=== PATIENT | male | born 1965 | race Caucasian/White ===

== ENCOUNTER 2016-09-12 06:26 | Day surgery (SDC) | payer OTHER ==
[2016-09-11 10:33] VITALS: BMI 26.2
[~2016-09-12 06:26] MED LIST: DEXAMETHASONE SOD PHOSPHATE 10 MG/ML 1 ML VIAL IV ONE; HEPARIN SODIUM,PORCINE 5,000 UNIT/ML 1 ML VIAL SQ ONE; LACTATED RINGERS 1,000 ML IV ONE; LIDOCAINE 1% 20 ML VIAL (10MG/ML) FOR IV START INTRADERMA PRN; MIDAZOLAM 2 MG/2 ML VIAL IV PRN; SCOPOLAMINE 1.5MG/72HR PATCH TRANSDERM ONE; ceFAZolin 2 GM in SODIUM CHLORIDE 0.9% 100 ML IVPB ONE
[2016-09-12] MEDS ORDERED: LIDOCAINE 1% 20 ML VIAL (10MG/ML) FOR IV START INTRADERMA ONE (07:10)
[2016-09-12 07:11] LABS: Glucose,Whole Blood 106 mg/dL (75-99)
[2016-09-12] MEDS ORDERED: LACTATED RINGERS 1,000 ML IV ONE (07:12)
[2016-09-12 07:27] LABS: CH 31.1; CHCM 35.3; HCT 45.7 % (39.0-53.0); HDW 2.43; HGB 15.7 gm/dL (13.0-17.5); MCH 30.5 pg (25.0-35.0); MCHC 34.4 g/dL (31.0-37.0); MCV 88.7 fL (80.0-100.0); RBC 5.15 m/uL (4.30-5.90); RDW 12.7 % (11.5-15.5); WBC 5.7 k/uL (3.8-10.6)
[2016-09-12 07:36] LABS: Anion Gap 10 mmol/L; Blood Urea Nitrogen 17 mg/dL (9-20); Calcium 9.7 mg/dL (8.4-10.2); Carbon Dioxide 24 mmol/L (22-30); Chloride 106 mmol/L (98-107); Glucose 111 mg/dL (74-99); Non-African American GFR(MDRD) >60 (>60 ml/min/1.73 sqM); Potassium 4.8 mmol/L (3.5-5.1); Sodium 140 mmol/L (137-145)
--- NOTE | 2016-09-12 07:39 | P.GSHP ---
History of Present Illness H&P Date: 09/12/16 Chief Complaint: Incisional hernia This is a 50-year-old male who has developed an incisional hernia above his umbilicus. Patient presents today for laparoscopic robotic-assisted repair. Past Medical History Past Medical History: Coronary Artery Disease (CAD), Chest Pain / Angina, Eye Disorder, GERD/Reflux, GI Bleed, Hypertension, Sleep Apnea/CPAP/BIPAP Additional Past Medical History / Comment(s): L eye glaucoma. no recent problems w/chest pain, supposed to take BP med, "pre-diabetic", elevated liver enzymes, past hx. GI bleed, doesn't use CPAP, INCISIONAL HERNIA ABOVE UMBILICAL AREA History of Any Multi-Drug Resistant Organisms: None Reported Past Surgical History: Appendectomy, Cholecystectomy, Heart Catheterization, Hernia Repair, Orthopedic Surgery Additional Past Surgical History / Comment(s): knee surg. due to a spider bite Past Anesthesia/Blood Transfusion Reactions: No Reported Reaction Past Psychological History: No Psychological Hx Reported Additional Psychological History / Comment(s): Pt lives with S.O. for 20 yrs. Pt is normally independent. Pt works as a [employer]. Pt drives. Smoking Status: Never smoker Past Alcohol Use History: Occasional Additional Past Alcohol Use History / Comment(s): STATES ON DRINKS 3 BEERS WEEKLY AT THIS TIME Past Drug Use History: None Reported - Past Family History Father Family Medical History: Coronary Artery Disease (CAD), Myocardial Infarction (RI ) Additional Family Medical History / Comment(s): Father at age 62 or 63. He had 13 RI's before he . Mother Family Medical History: Cancer, Diabetes Mellitus Additional Family Medical History / Comment(s): Mother was 61-62 yrs when she . Medications and Allergies Home Medications Medication Instructions Recorded Confirmed Type Ibuprofen [Motrin] 800 mg PO TID PRN 09/11/16 09/11/16 History Allergies Allergy/AdvReac Type Severity Reaction Status Date / Time ondansetron HCl Allergy Itching Verified 09/11/16 10:23 [From Zofran (as hydrochloride)] Surgical - Exam Vital Signs Temp Pulse Resp BP Pulse Ox 97 F L 73 16 127/91 96 09/12/16 07:10 09/12/16 07:10 09/12/16 07:10 09/12/16 07:10 09/12/16 07:10 - General well developed, no distress - Eyes PERRL - ENT normal pinna - Neck no masses - Respiratory normal expansion - Cardiovascular Rhythm: regular - Abdomen Abdomen: soft, non tender Hernia: incisional (3 cm incisional hernia located above the umbilicus.) Results - Labs 09/12/16 07:09 Abnormal Lab Results - Last 24 Hours (Table) 09/12/16 Range/Units 06:55 POC Glucose (mg/dL) 106 H (75-99) mg/dL Assessment and Plan Plan: Incisional hernia. We'll perform laparoscopic robotic-assisted repair.
[2016-09-12] MEDS ORDERED: PROPOFOL 10 MG/ML 20 ML VIAL IV ONE (07:44)
[2016-09-12] MEDS ORDERED: fentaNYL (PF) 50 MCG/ML 2 ML AMP ONE (07:44)
[2016-09-12] MEDS ORDERED: NEOSTIGMINE 1 MG/ML 10 ML VIAL ONE (07:44)
[2016-09-12] MEDS ORDERED: ROCURONIUM BROMIDE 10 MG/ML 10 ML VIAL IV ONE (07:44)
[2016-09-12] MEDS ORDERED: LIDOCAINE 1% INJ 10MG/ML (20 ML MDV) ONE (07:44)
[2016-09-12] MEDS ORDERED: MIDAZOLAM 2 MG/2 ML VIAL ONE (07:44)
[2016-09-12] MEDS ORDERED: HYDROmorphone (PF) 1 MG/ML ONE (07:44)
[2016-09-12] MEDS ORDERED: SUCCINYLCHOLINE CHLORIDE 100 MG/5 ML SYR IV ONE (07:44)
[2016-09-12] MEDS ORDERED: GLYCOPYRROLATE 0.2 MG/ML 2 ML VIAL ONE (07:44)
[2016-09-12] MEDS ORDERED: BUPIVACAIN-EPI 0.25%-1:200,000 30 ML VIAL SQ ONE ×3 (08:07→08:10)
[2016-09-12 09:07] VITALS: TEMP 98.4
--- NOTE | 2016-09-12 09:08 | P.OP ---
Date of Procedure: 09/12/16 Preoperative Diagnosis: Incisional hernia Postoperative Diagnosis: Incisional hernia Procedure(s) Performed: Laparoscopic Robotic-assisted repair of incisional hernia Partial omentectomy Anesthesia: MAC Surgeon: Yuval Wilson Estimated Blood Loss (ml): 5 Pathology: other (Incarcerated omentum) Condition: stable Disposition: PACU Description of Procedure: The patient's placed on the operative table in the supine position. He received general anesthesia. His abdomen was prepped and draped usual sterile fashion. The patient had an incarcerated incisional hernia located above the umbilicus. A 5 mm blade less trocar was placed in the peritoneal cavity in the left upper quadrant under direct visitation. The abdomen was insufflated and then a 8 mm trocar was placed in the left lower quadrant a 12 mm trocar was placed in the left lateral position and then the initial 5 mm trocar was exchanged for an 8 mm trocar. The patient was then docked to the robot. The hernia was visualized. And then using the hook cautery the incarcerated fat was removed from the hernia. The fascial defect was visualized. The fascial defect was closed with oh the lock suture. A [address] mesh was placed in her cavity this was secured with 20 the lock suture. The patient was undocked from the robot once the mesh was placed. The needles were then withdrawn. The incarcerated omentum was then withdrawn. And then the fascia 12 mm trocar site was closed with 0 Ethibond suture. Skin was closed interrupted 3-0 Monocryl suture. Dermabond was applied. Patient was sent to recovery room stable condition.
[2016-09-12] MEDS: HYDROmorphone 1 MG/ML 1 ML SYRINGE IVP PRN ×2 (09:14→09:20)
[2016-09-12 09:17] VITALS: RESP 18
[2016-09-12 09:29] LABS: Glucose,Whole Blood 169 mg/dL (75-99)
[2016-09-12] MEDS ORDERED: HYDROcodone/APAP 7.5-325MG 1 EACH TAB PO ONE (10:05)
[2016-09-12 10:33] VITALS: BP 160/89; PULSE 67
== END 2016-09-12 10:55 | disposition home or self-care (01) ==
LOC: OR 06:26
PROVIDERS: ATTEND Surgery
DX: K43.0 Incisional hernia with obstruction, without gangrene (principal); I10 Essential (primary) hypertension; K21.9 Gastro-esophageal reflux disease without esophagitis; Z79.1 Long term (current) use of non-steroidal anti-inflammatories (NSAID); Z88.8 Allergy status to other drugs, medicaments and biological substances; Z82.49 Family history of ischemic heart disease and other diseases of the circulatory system
CPT/HCPCS: 49655; S2900; 80048; 85027; 86850; 86900; 86901; 88302

== ENCOUNTER → 2020-12-02 | Outpatient (CLI) | payer OTHER | END | disposition home or self-care (01) | LOC: LABPAT 11:32 | PROVIDERS: ATTEND Surgery | DX: Z01.812 Encounter for preprocedural laboratory examination (principal); Z20.822 Contact with and (suspected) exposure to COVID-19 | CPT/HCPCS: 93005; U0003; U0005 ==

== ENCOUNTER → 2020-12-16 | Outpatient (CLI) | payer SELFPAY | END | disposition home or self-care (01) | LOC: LABPAT 11:49 | PROVIDERS: ATTEND Surgery | DX: Z01.812 Encounter for preprocedural laboratory examination (principal); Z20.822 Contact with and (suspected) exposure to COVID-19 | CPT/HCPCS: U0003; C9803 ==

== ENCOUNTER 2021-01-11 11:49 | Day surgery (SDC) | payer MEDICAID, OTHER ==
[2021-01-07 10:03] VITALS: BMI 27.0
[~2021-01-11 11:49] MED LIST changes: +CHLOROPROCAINE 3% 30 MG/ML 20 ML VIAL ONE; -DEXAMETHASONE SOD PHOSPHATE 10 MG/ML 1 ML VIAL IV ONE; +DEXAMETHASONE SOD PHOSPHATE 4 MG/ML 1 ML VIAL IV ONE; -HEPARIN SODIUM,PORCINE 5,000 UNIT/ML 1 ML VIAL SQ ONE; +HYDROmorphone 0.5 MG/0.5 ML SYRINGE IVP PRN; -LACTATED RINGERS 1,000 ML IV ONE; +LACTATED RINGERS 1,000 ML IV SCH; -LIDOCAINE 1% 20 ML VIAL (10MG/ML) FOR IV START INTRADERMA PRN; -MIDAZOLAM 2 MG/2 ML VIAL IV PRN; +Pre Op ABX Message 1 EACH MISC MISCELLANE ONE; -SCOPOLAMINE 1.5MG/72HR PATCH TRANSDERM ONE; -ceFAZolin 2 GM in SODIUM CHLORIDE 0.9% 100 ML IVPB ONE
[2021-01-11] MEDS ORDERED: LIDOCAINE 1% (10MG/ML) FOR IV START INTRADERMA ONE (12:29)
[2021-01-11 12:37] LABS: Glucose,Whole Blood 84 mg/dL (75-99)
[2021-01-11] MEDS ORDERED: MIDAZOLAM 2 MG/2 ML VIAL IV ONE (12:37)
[2021-01-11] MEDS ORDERED: fentaNYL (PF) 50 MCG/ML 2 ML AMP ONE (13:34)
[2021-01-11] MEDS ORDERED: MIDAZOLAM 2 MG/2 ML VIAL ONE (13:34)
[2021-01-11] MEDS ORDERED: PROPOFOL 10 MG/ML 20 ML VIAL IV ONE (13:34)
--- NOTE | 2021-01-11 13:42 | P.GSHP ---
History of Present Illness H&P Date: 01/11/21 55-year-old male initially presented to the surgery clinic with complaints of internal hemorrhoids. The internal hemorrhoids were causing both pain and bleeding with bowel movements. He states this did occur with every bowel movement. He states that he had tried medical regimen including fiber phan pplementation and increased water intake. He does state that he drinks all call diverges every day and has not tried cutting back on that. He has never had a colonoscopy. He presents today for colonoscopy and hemorrhoidectomy. - Review of Systems All systems: negative Past Medical History Past Medical History: Coronary Artery Disease (CAD), Chest Pain / Angina, Eye Disorder, GERD/Reflux, Hypertension, Sleep Apnea/CPAP/BIPAP Additional Past Medical History / Comment(s): Start of left eye Glaucoma. Hx chest pain X2, no medication needed for high BP, "Pre-Diabetic", elevated liver enzymes, getting better, no CPAP use. Hx CoVid more than 30 days ago. History of Any Multi-Drug Resistant Organisms: None Reported Past Surgical History: Appendectomy, Cholecystectomy, Heart Catheterization, Hernia Repair, Orthopedic Surgery Additional Past Surgical History / Comment(s): Left knee surgery. Past Anesthesia/Blood Transfusion Reactions: No Reported Reaction Past Psychological History: No Psychological Hx Reported Smoking Status: Never smoker Past Alcohol Use History: Rare Past Drug Use History: None Reported - Past Family History Father Family Medical History: Coronary Artery Disease (CAD), Myocardial Infarction (PR) Additional Family Medical History / Comment(s): Father at age 62 or 63. He had 13 PR's before he . Mother Family Medical History: Cancer, Diabetes Mellitus Additional Family Medical History / Comment(s): Mother was 61-62 yrs when she . Medications and Allergies Home Medications Medication Instructions Recorded Confirmed Type Cetirizine HCl [Zyrtec] 10 mg PO DAILY 01/07/21 01/11/21 History Psyllium Husk [Metamucil] 0.4 gm PO DAILY PRN 01/07/21 01/11/21 History Allergies Allergy/AdvReac Type Severity Reaction Status Date / Time ondansetron HCl Allergy Itching Verified 01/11/21 12:14 [From Zofran (as hydrochloride)] Surgical - Exam Osteopathic Statement: *. No significant issues noted on an osteopathic structural exam other than those noted in the History and Physical/Consult. Vital Signs Temp Pulse Resp BP Pulse Ox 98.3 F 89 16 132/93 95 01/11/21 12:10 01/11/21 12:10 01/11/21 12:10 01/11/21 12:10 01/11/21 12:10 - General well nourished, no distress - Neck trachea midline - Abdomen Abdomen: soft, non tender - Rectum Grade 2 internal hemorrhoids Assessment and Plan Plan: 55-year-old male with grade 2 internal hemorrhoids. He has requested hem orrhoidectomy. We will perform a colonoscopy and hemorrhoidectomy. Risks, benefits and alternatives were provided to the patient. He did provide consent prior to attending the operating suite.
[2021-01-11] MEDS ORDERED: LACTATED RINGERS 1,000 ML IV ONE ×2 (14:00→15:39)
[2021-01-11] MEDS ORDERED: BUPIVACAIN-EPI 0.5%-1:200,000 30 ML VIAL SQ ONE (14:37)
[2021-01-11] MEDS ORDERED: LIDOCAINE 2% GEL 30 ML TUBE TOPICAL ONE (14:37)
[2021-01-11 15:07] VITALS: TEMP 96.9
[2021-01-11 15:18] VITALS: RESP 16
--- NOTE | 2021-01-11 15:34 | P.OP ---
Date of Procedure: 01/11/21 Preoperative Diagnosis: Screening for colon cancer Internal hemorrhoids Postoperative Diagnosis: Descending colon polyp Grade 2 internal hemorrhoids Procedure(s) Performed: Colonoscopy with polypectomy Hemorrhoidectomy Anesthesia: MAC Surgeon: Esequiel Hamilton Pathology: other (Hemorrhoids) Condition: stable Disposition: same day Indications for Procedure: 55-year-old male presented to the surgery clinic with complaints of blood per rectum and hemorrhoidal pain. On exam, he was found to have grade 2 internal hemorrhoids. He had never had a colonoscopy previously. He states that he has tried multiple medical modalities for hemorrhoidal treatment without any success. Secondary to this, plan was made for colonoscopy and hemorrhoidectomy based on patient request. Risks, benefits and alternatives of procedure were provided to the patient.. He did provide consent prior to attending the operati ng suite. Operative Findings: Descending colon polyp. Internal hemorrhoids Description of Procedure: The patient was brought into the operating suite and placed in left lateral decubitus position and adequate sedation was achieved using conscious sedation. A digital rectal exam was performed and internal hemorrhoids were palpated. An endoscope was then placed in the rectum and advanced to the cecum resident from LMX including the appendiceal orifice and ileocecal valve. The prep was good. The colonoscope was then slowly withdrawn, examining for any mucosal abnormality. The cecum, ascending, transverse, descending and sigmoid colon were visualized adequately. A descending colon polyp was noted. This was removed with forceps polypectomy but was unable to be retrieved for pathology. Hemostasis was noted to be maintained. There are no additional large neoplastic lesions. Retroflexion was performed in the rectum and internal hemorrhoids were visible. Excess air was removed, the colonoscope withdrawn and this portion of the procedure was terminated. The patient was then placed in prone position and prepped and draped in regular sterile fashion. A retractor was then placed in the anus and internal hemorrhoids were clearly visualized. These were noted at the 8 o'clock position along with the 4 o'clock position. The first hemorrhoid was grasped with a hemorrhoidal clamp. An elliptical incision was made around the hemorrhoid tissue using a scalpel. At this point LigaSure device was used to elliptically excise the hemorrhoidal tissue, staying superficial to the palpable sphincter muscle. Further bleeding was controlled with cautery. The mucosa was closed with a running 3-0 Vicryl suture leaving the end point of the dermis open. The second hemorrhoid was removed in a similar fashion. An additional smaller hemorrhoid was noted, however decision was made not to excise this hemorrhoid due to risk of stenosis. At this point Gelfoam was wrapped and placed within the anus. Sterile dressing was applied. The patient was awakened in the operative suite and taken to postanesthesia care unit in stable condition.
[2021-01-11 16:25] VITALS: BP 144/91; PULSE 75
== END 2021-01-11 16:29 | disposition home or self-care (01) ==
LOC: ORWHC2ENDO 11:49
PROVIDERS: ATTEND Surgery
DX: Z12.11 Encounter for screening for malignant neoplasm of colon (principal); K64.8 Other hemorrhoids; I25.10 Atherosclerotic heart disease of native coronary artery without angina pectoris; I10 Essential (primary) hypertension; H40.9 Unspecified glaucoma; K21.9 Gastro-esophageal reflux disease without esophagitis; G47.30 Sleep apnea, unspecified; R73.03 Prediabetes; R74.8 Abnormal levels of other serum enzymes; Z90.89 Acquired absence of other organs; Z90.49 Acquired absence of other specified parts of digestive tract; Z98.890 Other specified postprocedural states; Z82.49 Family history of ischemic heart disease and other diseases of the circulatory system; Z83.3 Family history of diabetes mellitus; Z79.899 Other long term (current) drug therapy; Z88.8 Allergy status to other drugs, medicaments and biological substances
CPT/HCPCS: 45398; 88304; 45380; J2400; J2250; J1100; J3010; J2704; 45385

== ENCOUNTER 2023-01-22 16:59 | Observation (INO) | payer MEDICAID, OTHER ==
[2023-01-22] MEDS ORDERED: MECLIZINE 12.5 MG TAB PO STA (17:36)
[2023-01-22] MEDS ORDERED: SODIUM CHLORIDE 0.9% 1,000 ML IV STA (17:38)
[2023-01-22 17:50] LABS: Basophils % (A) 0 %; Eosinophils # (A) 0.2 k/uL (0-0.7); Eosinophils % (A) 3 %; HCT 46.8 % (39.0-53.0); HGB 15.8 gm/dL (13.0-17.5); Lymphocytes # (A) 2.3 k/uL (1.0-4.8); Lymphocytes % (A) 32 %; MCH 29.1 pg (25.0-35.0); MCHC 33.8 g/dL (31.0-37.0); MCV 86.1 fL (80.0-100.0); Mean Platelet Volume 7.9; Monocytes # (A) 0.4 k/uL (0-1.0); Monocytes % (A) 6 %; Neutrophils # (A) 4.1 k/uL (1.3-7.7); Neutrophils % (A) 57 %; Platelet Count 176 k/uL (150-450); RBC 5.43 m/uL (4.30-5.90); RDW 12.8 % (11.5-15.5); WBC 7.1 k/uL (3.8-10.6)
[2023-01-22 18:00] LABS: ALT 22 U/L (4-49); AST 25 U/L (17-59); African American GFR (CKD) >90 (>60 ml/min/1.73 sqM); Albumin 4.6 g/dL (3.5-5.0); Alkaline Phosphatase 45 U/L (38-126); Anion Gap 9 mmol/L; Blood Urea Nitrogen 17 mg/dL (9-20); Calcium 9.7 mg/dL (8.4-10.2); Carbon Dioxide 23 mmol/L (22-30); Chloride 108 mmol/L (98-107); Glucose 104 mg/dL (74-99); Lipase 37 U/L (23-300); Magnesium 2.1 mg/dL (1.6-2.3); Non-African American GFR(CKD) >90 (>60 ml/min/1.73 sqM); Sodium 140 mmol/L (137-145); Total Bilirubin 0.9 mg/dL (0.2-1.3); Total Protein 7.5 g/dL (6.3-8.2)
--- NOTE | 2023-01-22 18:07 | ED ---
Chest Pain HPI - General Chief Complaint: Chest Pain Stated Complaint: dizziness,chest pain Time Seen by Provider: 01/22/23 17:05 Source: patient Mode of arrival: wheelchair Limitations: no limitations - History of Present Illness Initial Comments: 57-year-old male with past medical history of coronary artery disease, hypertension who presents emergency room reporting chest pain and sudden onset of dizziness. Patient states he was outside working on his yard when he had sudden onset of chest pressure and dizziness. Patient felt like he was going to pass out. Symptoms are worse with positional changes. He states that he stopped and got something to drink. Attempted to lay back down underneath a car however when he laid flat the symptoms of the room spinning got worse. He reports to feeling intoxicated however did not have anything to drink today. He denies a headache. Also has some radiating pain from his left chest wall to his left arm. No speech deficits or confusion. Patient did not take any medications for symptoms before coming into the emergency department. No other alleviating, precipitating factors - Related Data Home Medications Medication Instructions Recorded Confirmed Cetirizine HCl [Zyrtec] 10 mg PO DAILY 01/07/21 01/22/23 Allergies Allergy/AdvReac Type Severity Reaction Status Date / Time ondansetron HCl AdvReac UPSETS HIS Verified 01/22/23 19:07 [From Zofran (as STOMACH hydrochloride)] Review of Systems ROS Statement: Those systems with pertinent positive or pertinent negative responses have been documented in the HPI. ROS Other: All systems not noted in ROS Statement are negative. Past Medical History Past Medical History: Coronary Artery Disease (CAD), Chest Pain / Angina, Eye Disorder, GERD/Reflux, Hypertension, Sleep Apnea/CPAP/BIPAP Additional Past Medical History / Comment(s): Start of left eye Glaucoma. Hx chest pain X2, no medication needed for high BP, "Pre-Diabetic", elevated liver enzymes, getting better, no CPAP use. Hx CoVid more than 30 days ago. History of Any Multi-Drug Resistant Organisms: None Reported Past Surgical History: Appendectomy, Cholecystectomy, Heart Catheterization, Hernia Repair, Orthopedic Surgery Additional Past Surgical History / Comment(s): Left knee surgery. Past Anesthesia/Blood Transfusion Reactions: No Reported Reaction Past Psychological History: No Psychological Hx Reported Smoking Status: Never smoker Past Alcohol Use History: Rare Past Drug Use History: None Reported - Past Family History Father Family Medical History: Coronary Artery Disease (CAD), Myocardial Infarction ([place]) Additional Family Medical History / Comment(s): Father at age 62 or 63. He had 13 CO's before he . Mother Family Medical History: Cancer, Diabetes Mellitus Additional Family Medical History / Comment(s): Mother was 61-62 yrs when she . General Exam Limitations: no limitations General appearance: alert, in no apparent distress Head exam: Present: atraumatic, normocephalic, normal inspection Eye exam: Present: normal appearance, PERRL, EOMI. Absent: scleral icterus, conjunctival injection, periorbital swelling ENT exam: Present: normal exam, mucous membranes moist Neck exam: Present: normal inspection. Absent: tenderness, meningismus, lymphadenopathy Respiratory exam: Present: normal lung sounds bilaterally. Absent: respiratory distress, wheezes, rales, rhonchi, stridor Cardiovascular Exam: Present: regular rate, normal rhythm, normal heart sounds. Absent: systolic murmur, diastolic murmur, rubs, gallop, clicks GI/Abdominal exam: Present: soft, normal bowel sounds. Absent: distended, tenderness, guarding, rebound, rigid Extremities exam: Present: normal inspection, full ROM, normal capillary refill. Absent: tenderness, pedal edema, joint swelling, calf tenderness Back exam: Present: normal inspection Neurological exam: Present: alert, oriented X3, CN II-XII intact Psychiatric exam: Present: normal affect, normal mood Skin exam: Present: warm, dry, intact, normal color. Absent: rash Course Vital Signs 01/22/23 01/22/23 01/22/23 17:02 18:58 21:28 Temperature 97.6 F Pulse Rate 71 87 68 Respiratory 20 19 16 Rate Blood Pressure 137/85 128/84 122/75 O2 Sat by Pulse 98 98 99 Oximetry Chest Pain MDM - MDM Was pt. sent in by a medical professional or institution (, PA, CHEMIST INTERN, urgent care, hospital, or retirement...) When possible be specific @ -No Did you speak to anyone other than the patient for history (EMS, parent, family, police, friend...)? What history was obtained from this source @ -Spoke with the patient's Did you review nursing and triage notes (agree or disagree)? Why? @ -I reviewed and agree with nursing and triage notes Were old charts reviewed (outside hosp., previous admission, EMS record, old EKG, old radiological studies, urgent care reports/EKG's, retirement records)? Report findings @ -No old charts were reviewed Differential Diagnosis (chest pain, altered mental status, abdominal pain women, abdominal pain men, vaginal bleeding, weakness, fever, dyspnea, syncope, headache, dizziness, GI bleed, back pain, seizure, CVA, palpatations, mental health, musculoskeletal)? @ -Differential Dizziness: Benign paroxysmal positional Vertigo, Menieres disease, otitis media, acoustic neuroma, vertebrobasilar insufficiency, cerebellar stroke, encephalitis, hypovolemic, arrhythmia, coronary artery syndrome, anemia, this is not meant to be an all-inclusive list Differential Chest Pain: Stable Angina, Unstable Angina, STEMI, NSTEMI Aortic Dissection, Pneumothorax, Musculoskeletal, Esophageal Spasm GERD, Cholecystitis, Pancreatitis, Zoster, this is not meant to be an all-inclusive list. EKG interpreted by me (3pts min.). @ -Yes. EKG demonstrates sinus rhythm with rate of 68. CA interval 175. QRS 83. QTC is 387. No acute ST segment elevations or depressions X-rays interpreted by me (1pt min.). @ -Yes and no acute intrathoracic process CT interpreted by me (1pt min.). @ -Yes and demonstrates no acute intracranial process U/S interpreted by me (1pt. min.). @ -None done What testing was considered but not performed or refused? (CT, X-rays, U/S, la bs)? Why? @ -None What meds were considered but not given or refused? Why? @ -None Did you discuss the management of the patient with other professionals (professionals i.e. , PA, CHEMIST INTERN, lab, RT, psych nurse, social services assistant, virtual assistant for advertisers, teacher, banking officer, casework manager)? Give summary @ -Yes I spoke with Dr. Edwards who agreed to admit the patient Was smoking cessation discussed for >3mins.? @ -No Was critical care preformed (if so, how long)? @ -No Were there social determinants of health that impacted care today? How? (Homelessness, low income, unemployed, alcoholism, drug addiction, transportation, low edu. Level, literacy, decrease access to med. care, alf, rehab)? @ -No Was there de-escalation of care discussed even if they declined (Discuss DNR or withdrawal of care, Hospice)? DNR status @ -No What co-morbidities impacted this encounter? (DM, HTN, Smoking, COPD, CAD, Cancer, CVA, ARF, Chemo, Hep., AIDS, mental health diagnosis, sleep apnea, morbid obesity)? @ -None Was patient admitted / discharged? Hospital course, mention meds given and route, prescriptions, significant lab abnormalities, going to OR and other pertinent info. @ -Upon arrival patient was placed into a trauma 1. A thorough history and physical exam is performed. IV access is established laboratory studies were conducted. Patient was given 25 mg of meclizine and reevaluated however continues to have symptoms. He was then given [address] is performed which demonstrates no acute intracranial process. Patient does have persistent vertiginous symptoms and therefore is given [address] angiography performed which demonstrates no acute occlusion. Recommended admission for neurology and cardiac consultation. Spoke with Dr. Waite who agreed to admit the patient Undiagnosed new problem with uncertain prognosis? @ -Yes Drug Therapy requiring intensive monitoring for toxicity (Heparin, Nitro, Insulin, Cardizem)? @ -No Were any procedures done? @ -No Diagnosis/symptom? @ -Acute chest pain, acute intractable vertigo Acute, or Chronic, or Acute on Chronic? @ -Acute Uncomplicated (without systemic symptoms) or Complicated (systemic symptoms)? @ -Complicated Side effects of treatment? @ -No Exacerbation, Progression, or Severe Exacerbation? @ -No Poses a threat to life or bodily function? How? (Chest pain, [place], CO, pneumonia, PE, COPD, DKA, ARF, appy, cholecystitis, CVA, Diverticulitis, Homicidal, Suicidal, threat to staff... and all critical care pts) @ -No Disposition Clinical Impression: Chest pain, Vertigo Disposition: ADMITTED IP TO THIS [facility] Condition: Good Is patient prescribed a controlled substance at d/c from ED?: No Time of Disposition: 20:32 Decision to Admit Reason: Admit from EC Decision Date: 01/22/23 Decision Time: 20:32
[2023-01-22 18:11] LABS: Prothrombin Time 10.2 sec (9.0-12.0)
[2023-01-22 18:14] LABS: Partial Thromboplastin Time 21.4 sec (22.0-30.0)
--- NOTE | 2023-01-22 18:22 | XR ---
EXAMINATION TYPE: XR chest 2V DATE OF EXAM: 01/22/2023 5:56 PM COMPARISON: Chest radiographs from 10/02/2014 TECHNIQUE: XR chest 2V Frontal and lateral views of the chest. CLINICAL INDICATION:Male, 57 years old with history of Chest Pain; FINDINGS: Lungs/Pleura: There is no evidence of pleural effusion, focal consolidation, or pneumothorax. Pulmonary vascularity: Unremarkable. Heart/mediastinum: Cardiomediastinal silhouette is unremarkable. Musculoskeletal: No acute osseous pathology. IMPRESSION: No acute cardiopulmonary disease/process.
--- NOTE | 2023-01-22 19:47 | CT ---
EXAMINATION TYPE: CT brain wo con CT DLP: 1168.4 mGycm, Automated exposure control for dose reduction was used. DATE OF EXAM: 01/22/2023 7:29 PM COMPARISON: None. CLINICAL INDICATION:Male, 57 years old with history of headache, dizzy, Dizziness, weakness, nausea. TECHNIQUE: Brain: Axial CT images of the brain were obtained with coronal and sagittal reformats created and rev iewed. Contrast used: None. Oral contrast used: None. FINDINGS: Brain: Extra-axial spaces: No abnormal extra-axial fluid collections. Ventricular system: Within normal limits Cerebral parenchyma: No acute intraparenchymal hemorrhage or mass effect. The rossi-white junction is well differentiated. Cerebellum: Unremarkable. Mass effect: No evidence of midline shift. Intracranial vasculature: unremarkable Soft tissues: Normal. Calvarium/osseous structures: No depressed skull fracture. Paranasal sinuses and mastoid air cells: Mild scattered paranasal sinus disease. Visualized orbits: Orbital contents are intact. IMPRESSION: No acute intracranial process.
[2023-01-22] MEDS ORDERED: DEXAMETHASONE SOD PHOSPHATE 10 MG/ML 1 ML VIAL IVP STA (20:29)
[2023-01-22] MEDS ORDERED: NALOXONE 0.4 MG/ML 1 ML VIAL IV PRN (20:33)
--- NOTE | 2023-01-22 21:16 | CT ---
EXAMINATION TYPE: CT angio head neck CT DLP: 648.80 mGycm, Automated exposure control for dose reduction was used. DATE OF EXAM: 01/22/2023 8:58 PM COMPARISON: None. CLINICAL INDICATION:Male, 57 years old with history of persistent vertigo;, vertigo TECHNIQUE: Axially acquired helical CT angiogram of the head and neck was obtained with contrast. Axi al images are supplemented with 3D reconstructions which [facility] NASCET criteria used. Contrast used:65 mL of Isovue 370 with IV Contrast, Oral contrast used: None. FINDINGS: CTA HEAD: No evidence of acute intracranial hemorrhage, mass effect, or midline shift. The ventricles, sulci, a nd cisterns are unremarkable. The visualized portions of the internal carotid arteries, middle cerebral arteries, anterior cerebral arteries, and posterior cerebral arteries are patent. Intracranial atherosclerosis of the internal carotid arteries. The basilar and vertebral arteries are patent. Is right dominant vertebral artery system CTA NECK: Poor bolus timing limits evaluation of the vascular structures of the neck. Right Carotid System: The common carotid artery and external carotid artery are patent. The carotid bifurcation demonstrate s no evidence of hemodynamically significant stenosis. The remaining portions of the internal carotid artery demonstrate normal size without significant narrowing. Left Carotid System: The common carotid artery and external carotid artery are patent. The carotid bifurcation demonstrate s no evidence of hemodynamically significant stenosis. The remaining portions of the internal carotid artery demonstrate normal size without significant narrowing. Vertebral arteries are patent without evidence hemodynamically significant stenosis. There is a three-vessel aortic arch. The origins of the great vessels are patent. No evidence of hemo dynamically significant stenosis. IMPRESSION: 1. Limited evaluation of the neck vascular structures secondary to limited amount of contrast within the vascular structures. What is visualized of the carotid bifurcations are patent. The vertebral ar teries are patent. There is right dominant vertebral artery. 2. No evidence of intracranial high-grade stenosis or intracranial aneurysm.
[2023-01-22] MEDS: SODIUM CHLORIDE 0.9% 1,000 ML IV SCH (21:24)
[2023-01-22 22:46] LABS: African American GFR (CKD) >90 (>60 ml/min/1.73 sqM); Anion Gap 5 mmol/L; Blood Urea Nitrogen 15 mg/dL (9-20); Calcium 8.7 mg/dL (8.4-10.2); Carbon Dioxide 25 mmol/L (22-30); Chloride 106 mmol/L (98-107); Glucose 159 mg/dL (74-99); Non-African American GFR(CKD) >90 (>60 ml/min/1.73 sqM); Potassium 4.1 mmol/L (3.5-5.1); Sodium 136 mmol/L (137-145)
[2023-01-23] MEDS ORDERED: BUTALB/APAP/CAFF 50-325-40MG TAB PO PRN (09:19)
[2023-01-23] MEDS ORDERED: KETOROLAC 15 MG/ML 1 ML VIAL IVP STA (09:19)
[2023-01-23] MEDS ORDERED: IBUPROFEN 600 MG TAB PO PRN (09:20)
[2023-01-23] MEDS ORDERED: ACETAMINOPHEN TAB 325 MG TAB PO PRN (09:20)
[2023-01-23] MEDS: SODIUM CHLORIDE 0.9% 1,000 ML IV SCH ×2 (09:55→21:26)
--- NOTE | 2023-01-23 10:20 | CONS ---
CONSULTATION HISTORY OF PRESENT ILLNESS: A 57-year-old gentleman with family history of premature coronary artery disease, who is admitted to hospital with severe vertigo. He was working underneath his truck, suddenly moved his head one way, and developed vertigo and has had recurrent bouts of the same, and along with this, he has had some nausea, started having chest discomfort, and came to the ER and got admitted. At the time of my evaluation, he still has vertigo. Cardiac enzymes have been negative, and EKG does not reveal any ischemic changes. His CT scan of the brain was negative. PAST MEDICAL HISTORY: Negative for hypertension, diabetes, or dyslipidemia. MEDICATIONS: Include Zyrtec. FAMILY HISTORY: Significant for premature coronary artery disease. SOCIAL HISTORY: Negative for smoking, EtOH abuse, or drug abuse. REVIEW OF SYSTEMS: 14 out of 14 review of systems has been performed. Pertinents are as documented. PHYSICAL EXAMINATION: GENERAL: He is comfortable at rest. VITAL SIGNS: Stable. There are no orthostatic changes. NECK: There is no jugular venous distention. Carotid upstroke is normal. There is no bruit. CHEST: Reveals good air entry bilaterally. HEART: Reveals first and second heart sounds. No gallop. No murmur. No rub. ABDOMEN: Soft and nontender. EXTREMITIES: Did not reveal any edema. Peripheral pulses are felt. LABORATORY DATA: EKG is normal. Cardiac enzymes are normal. Hemoglobin is normal. Electrolytes are normal. ASSESSMENT: 1. Vertigo. 2. Atypical chest pain. PLAN: I will obtain a 2D echo. Vertigo management is as per primary and Neurology. The patient will need a stress test when his vertiginous symptoms improve, and this will be done in the outpatient setup. MMODL / IJN: [id number] /
[2023-01-23 10:50] LABS: Basophils # (A) 0 X 10*3/uL (0.00-0.10); Basophils % (A) 0 %; Eosinophils # (A) 0 X 10*3/uL (0.04-0.35); Eosinophils % (A) 0 %; HCT 43.6 % (39.6-50.0); HGB 14.4 g/dL (13.0-17.0); Immature Grans, Automated 0.4 %; Lymphocytes # (A) 0.95 X 10*3/uL (0.90-5.00); Lymphocytes % (A) 17.2 %; MCH 29.2 pg (27.0-32.0); MCV 88.4 fL (80.0-97.0); Mean Platelet Volume 10.7 fL (9.5-12.2); Monocytes # (A) 0.09 X 10*3/uL (0.20-1.00); Monocytes % (A) 1.6 %; NRBC Per 100 WBC 0 /100 WBCS (0.0-0.0); Neutrophils # (A) 4.47 X 10*3/uL (1.80-7.70); Neutrophils % (A) 80.8 %; Platelet Count 175 X 10*3/uL (140-440); RBC 4.93 X 10*6/uL (4.40-5.60); WBC 5.53 X 10*3/uL (4.50-10.00)
[2023-01-23 11:06] LABS: African American GFR (CKD) 110.9 (60.0-200.0); Anion Gap 9.7 mmol/L (10.00-18.00); BUN/Creat Ratio 16.1 Ratio (12.00-20.00); Blood Urea Nitrogen 13.8 mg/dL (9.0-27.0); Calcium 9.1 mg/dL (8.7-10.3); Carbon Dioxide 22.4 mmol/L (20.0-27.5); Non-African American GFR(CKD) 95.7 (60.0-200.0); Potassium 4.3 mmol/L (3.5-5.5)
[2023-01-23] MEDS ORDERED: ASPIRIN 81 MG PO STA (11:22)
--- NOTE | 2023-01-23 11:39 | P.CNNES ---
History of Present Illness Consult date: 01/23/23 Requesting physician: Kristina Ramos Reason for Consult: Intractable vertigo History of Present Illness: Patient is a 57-year-old right-handed male, with previous history of intermittent dizziness/lightheadedness came to the hospital yesterday at 4:59 PM for acute onset of vertigo. Patient states that yesterday at 4 PM he was working on the yard, and crawled under the tractor to fix something. After he was done, when he got out underneath, he felt dizzy, with spinning sensation. He sat down. His gave him some water, juice and some sandwiches with yogurt. He believes that as he was laying underneath the truck, his head was slightly below his body because of the incline in the driveway. He believe it was because of that position. About 30 minutes after, he felt better, and wanted to go under the truck again. He got under the truck and as soon as he got in there, he started spinning. He felt nauseous, like will vomit. He sat up, leaned against the truck he appeared pale, complaining of chest pain or shortness of breath. His was concerned about possible cardiac reasons, called their children, who helped him get up and get into the car and she brought him to the hospital. Patient says that he felt like drunk, although he is not drinking anymore. His noticed that he has some slurred speech although patient believes that it was possibly from dry mouth and nausea. He denied any focal numbness, tingling, focal weakness, or any double vision or loss of vision although he had to concentrate to focus. He could not stand. He did have some headache and was acting slow in general. Vital signs on arrival blood pressure 137/85, pulse rate 71 temperature 97.6. Blood test shows normal CBC, PT/PTT, normal CMP, troponin's, lipase. EKG, chest x-ray and CT head are normal. I personally reviewed CT head, and appears normal. No acute process. The visualized paranasal sinuses and external auditory canals are clear. CTA of head and neck was limited study because of limited amount of contrast within the vascular structures, but otherwise appears patent. The vertebral arteries are patent. There is right dominant vertebral artery. No evidence of intracranial high-grade stenosis or intracranial aneurysm. While in the ER, when computed tomography scan of the head was attempted, and as soon as he laid flat in the scanner, he started having significant vertigo nausea and wanted to vomit. He was given Valium to sleep. Once he slept, he was put back on the scanner, and within less than 5 seconds, he started spinning again. With great difficulty the test was completed. Last night when he was sitting up, he was okay but when he would lay flat, he would start spinning. This morning when he woke up, and he rolled over to the left, immediately felt vertigo. Patient states that at present, he cannot sit up, cannot lay flat, cannot roll over to the left side. He cannot roll over all the way to the right, although he is slightly comfortable when he is about 30 turned to the right. Patient takes Zyrtec 10 mg daily. He does not take any antiplatelet medication. He states that he does have hypertension, prediabetes, denies any current alcohol use, as he completely quit drinking on 12/02/2021, as he used to drink quite heavily before that. He has never smoked, used to smoke we did, quit age 25.He denies any recent head or neck injury. Patient states that for few years he has been feeling dizzy lightheaded off and on, which he attributed to not eating or drinking well. He bought motorcycle, but notices that when he was trying to come to stop sign and takes off, he felt wobbly before he can continue to ride the motorcycle. He feels loss of balance at that time. Patient does have some tinnitus mainly in the right ear which she describes as "pinging". Patient states that about 2 weeks ago he was under the truck at the same spot and had no-shows at that time. He denies any recent ear infection, any pain in the ears or feeling pops. Last summer he was noticing difficulty with swimming because of dizziness. Patient states that this is the first time that he suffered from vertigo, otherwise he is to get only dizziness. Orthostatics checked, supine blood pressure 131/77, pulse rate 87, sitting blood pressure 127/78, pulse rate 96, standing blood pressure 113/73 with pulse of 97. Orthostatics are essentially borderline negative. Review of Systems Constitutional: Denies chills, Denies fever Eyes: denies blurred vision (Difficult to focus), denies diplopia, denies pain Ears: bilateral: tinnitus (Left worse), deny: decreased hearing, ear discharge, earache Ears, nose, mouth and throat: Denies headache, Denies sore throat Cardiovascular: Reports chest pain, Denies shortness of breath Respiratory: Denies cough, Denies excessive sputum Gastrointestinal: Reports nausea, Reports vomiting, Denies abdominal pain, Denies diarrhea Genitourinary: Denies discharge, Denies dysuria, Denies flank pain, Denies urinary frequency Musculoskeletal: Denies myalgias, Denies neck pain Integumentary: Denies pruritus, Denies rash Neurological: Reports as per HPI Psychiatric: Denies anxiety, Denies depression Endocrine: Denies fatigue, Denies weight change Hematologic/Lymphatic: Denies easy bleeding, Denies easy bruising Past Medical History Past Medical History: Coronary Artery Disease (CAD), Chest Pain / Angina, Eye Disorder, GERD/Reflux, Hypertension, Sleep Apnea/CPAP/BIPAP Additional Past Medical History / Comment(s): Start of left eye Glaucoma. Hx chest pain X2, no medication needed for high BP, "Pre-Diabetic", elevated liver enzymes, getting better, no CPAP use. Hx CoVid more than 30 days ago. History of Any Multi-Drug Resistant Organisms: None Reported Past Surgical History: Appendectomy, Cholecystectomy, Heart Catheterization, Hernia Repair, Orthopedic Surgery Additional Past Surgical History / Comment(s): Left knee surgery. Past Anesthesia/Blood Transfusion Reactions: No Reported Reaction Past Psychological History: No Psychological Hx Reported Smoking Status: Never smoker Past Alcohol Use History: Rare Past Drug Use History: None Reported - Past Family History Father Family Medical History: Coronary Artery Disease (CAD), Myocardial Infarction ([place]) Additional Family Medical History / Comment(s): Father at age 62 or 63. He had 13 [place]'s before he . Mother Family Medical History: Cancer, Diabetes Mellitus Additional Family Medical History / Comment(s): Mother was 61-62 yrs when she . Medications and Allergies Home Medications Medication Instructions Recorded Confirmed Type Cetirizine HCl [Zyrtec] 10 mg PO DAILY 01/07/21 01/22/23 History Allergies Allergy/AdvReac Type Severity Reaction Status Date / Time ondansetron HCl AdvReac UPSETS HIS Verified 05/29/23 19:07 [From Zofran (as STOMACH hydrochloride)] Physical Examination - Vital Signs Vital Signs: Vital Signs Temp Pulse Pulse Pulse Pulse Pulse Resp 01/23/23 07:15 98 F 74 15 01/23/23 01:33 97.7 F 96 97 87 18 01/23/23 00:51 18 01/22/23 22:53 97.8 F 65 18 01/22/23 21:28 68 16 01/22/23 18:58 87 19 01/22/23 17:02 97.6 F 71 20 BP BP BP BP BP Pulse Ox 01/23/23 07:15 115/69 96 01/23/23 01:33 127/78 113/73 131/77 94 L 01/23/23 00:51 01/22/23 22:53 119/73 98 01/22/23 21:28 122/75 99 01/22/23 18:58 128/84 98 01/22/23 17:02 137/85 98 Intake and Output 01/22/23 01/23/23 01/23/23 22:59 06:59 14:59 Intake Total 118 Output Total 1000 Balance -1000 118 Intake: Oral 118 Output: Urine 1000 Other: Voiding Method Urinal Weight 81.647 kg Patient is a middle aged male, in no acute distress. Patient is alert awake oriented to time place and person. Speech and language functions are normal. Patient can name and repeat very well. No aphasia or dysarthria. Attention, concentration and fund of knowledge is adequate. On cranial nerve examination, pupils are equal, round and reacting to light, visual harden are full on confrontation, with no neglect on double simultaneous stimulation. Extraocular muscles are intact with no nystagmus. Face is symmetric, tongue protrudes to the midline. Palatal elevation and sensation normal, hearing is normal for routine conversation, but is severely decreased for finger rubbing bilaterally, left worse than right. He has shoulder shrug normal, facial sensation normal. On muscle strength testing, there is no pronator drift and the strength is normal in arms and legs distally and proximally. Deep tendon reflexes are symmetric 1+ at the biceps, 1 brachioradialis, 1+ at the knees, 1+ ankles and plantars downgoing bilaterally. Sensory to touch is equal with no neglect on double simultaneous stimulation. Cerebellar function showed no ataxia for efqngf-qo-anad testing. No dysdiadochokinesia. No ataxia for eyvx-pf-owdn testing on either side. Tone and bulk of muscles normal. Gait deferred.. On general examination, there is no carotid bruit or murmur, S1-S2 audible. Chest is clear on consultation. Abdomen is soft nontender. No organomegaly, bowel sounds present. Peripheral pulses are present. No edema. Results - Laboratory Findings CBC and BMP: 01/23/23 05:39 01/23/23 05:39 Abnormal Lab Findings: Abnormal Labs 01/22/23 01/22/23 01/22/23 17:36 17:36 22:03 APTT 21.4 L Sodium 136 L Chloride 108 H Glucose 104 H 159 H Assessment and Plan Assessment: * Acute onset of vertigo, with worsening symptoms with changing his head or body position. Examination is otherwise nonfocal. Symptoms suggestive of possible peripheral vestibular dysfunction, cerebellar CVA less likely. * 1 years history of intermittent dizziness, lightheadedness, some tinnitus, also suggestive of peripheral vestibular dysfunction. Rule out BPPV versus v estibular neuritis. * Hypertension * Previous history of alcohol use Plan: * MRI brain, rule out cerebellar stroke * B12, folate, TSH, A1c, lipid panel * Aspirin 324 mg 1 dose pending further testing as above. * CTA of head and neck was limited study because of limited amount of contrast within the vascular structures, but otherwise appears patent. The vertebral arteries are patent. There is right dominant vertebral artery. No evidence of intracranial high-grade stenosis or intracranial aneurysm. * If MRI comes back negative, then would recommend ENT consultation. * Neurology will follow. Thank you for the consult. Time with Patient: Greater than 30
[2023-01-23] MEDS ORDERED: LORazepam 2 MG/ML INJ IV PRN (22:19)
[2023-01-23] MEDS ORDERED: RX INFO: IV CONTRAST WAS GIVEN 1 EACH MISC MISCELLANE PRN (22:20)
[2023-01-23] MEDS: MONTELUKAST 10 MG TAB PO SCH (22:41)
[2023-01-23] MEDS: methylPREDNISolone SOD SUCCI 125 MG/2 ML VIAL IV SCH (22:41)
[2023-01-23] MEDS: SYMBICORT 160-4.5 MCG INHALER INHALATION SCH (22:50)
[2023-01-23] MEDS: IPRATROPIUM-ALBUTEROL 3 ML NEB INHALATION SCH (22:50)
[2023-01-23] MEDS: CIPROFLOXACIN-DEXAMETH 0.3-0.1% DROPS 7.5 ML BTL BOTH EARS SCH (23:00)
[2023-01-24] MEDS: IPRATROPIUM-ALBUTEROL 3 ML NEB INHALATION SCH ×5 (08:23→19:34)
[2023-01-24] MEDS: SYMBICORT 160-4.5 MCG INHALER INHALATION SCH ×3 (08:24→19:34)
[2023-01-24] MEDS: methylPREDNISolone SOD SUCCI 125 MG/2 ML VIAL IV SCH ×2 (09:02→17:02)
[2023-01-24] MEDS: MONTELUKAST 10 MG TAB PO SCH ×2 (09:02→13:19)
[2023-01-24] MEDS: CIPROFLOXACIN-DEXAMETH 0.3-0.1% DROPS 7.5 ML BTL BOTH EARS SCH ×2 (09:02→20:31)
--- NOTE | 2023-01-24 10:42 | CA ---
Transthoracic Echo Report Name: Jacob Gonzalez Age: 57 Gender: M : 1965 Exam Date: 01/24/2023 08:32 Exam Location: [facility] Ht (in): 73 Wt (lb): 180 Ordering Physician: Elias Reagan MD ([id number]) Attending/Referring Phys: Merary ALBERTS [employer] Journeyman Isra Jalloh Procedure CPT: Indications: Chest Pain Cardiac Hx: Technical Quality: Fair Contrast 1: Total Dose (mL): Contrast 2: Total Dose (mL): MEASUREMENTS (Male / Female) Normal Values 2D ECHO LV Diastolic Diameter PLAX 4.8 cm 4.2 - 5.9 / 3.9 - 5.3 cm LV Systolic Diameter PLAX 3.1 cm IVS Diastolic Thickness 1.2 cm 0.6 - 1.0 / 0.6 - 0.9 cm LVPW Diastolic Thickness 0.1 cm 0.6 - 1.0 / 0.6 - 0.9 cm LV Relative Wall Thickness 0.3 RV Internal Dim ED PLAX 2.0 cm LVOT Diameter 2.1 cm Aortic Root Diameter 3.2 cm LA Systolic Diameter LX 3.6 cm 3.0 - 4.0 / 2.7 - 3.8 cm LV Diastolic Volume MOD BP 66.6 cm??? 67 - 155 / 56 - 104 cm??? LV Systolic Volume MOD BP 21.1 cm??? 22 - 58 / 19 - 49 cm??? LV Ejection Fraction MOD BP 68.3 % >= 55 % LV Diastolic Volume MOD 4C 71.6 cm??? LV Systolic Volume MOD 4C 21.7 cm??? LV Ejection Fraction MOD 4C 69.7 % LV Diastolic Length 4C 7.0 cm LV Systolic Length 4C 5.6 cm LV Diastolic Volume MOD 2C 58.4 cm??? LV Systolic Volume MOD 2C 20.4 cm??? LV Ejection Fraction MOD 2C 65.0 % LV Diastolic Length 2C 6.6 cm LV Systolic Length 2C 5.6 cm LA Volume 41.9 cm??? 18 - 58 / 22 - 52 cm??? Ascending Aorta Diameter 3.3 cm DOPPLER AV Peak Velocity 113.2 cm/s AV Peak Gradient 5.1 mmHg LVOT Peak Velocity 95.3 cm/s LVOT Peak Gradient 3.6 mmHg AV Area Cont Eq pk 2.9 cm??? MV Peak Velocity 94.1 cm/s MV Peak Gradient 3.5 mmHg MV Mean Velocity 47.6 cm/s MV Mean Gradient 1.2 mmHg MV Velocity Time Integral 32.1 cm MR Peak Velocity 307.0 cm/s MR Peak Gradient 37.7 mmHg Mitral E Point Velocity 84.2 cm/s Mitral A Point Velocity 65.9 cm/s Mitral E to A Ratio 1.3 MV Deceleration Time 157.5 ms MV E' Velocity 9.5 cm/s Mitral E to MV E' Ratio 8.9 TR Peak Velocity 250.0 cm/s TR Peak Gradient 25.0 mmHg Right Ventricular Systolic Press 30.2 mmHg FINDINGS Left Ventricle Mild Concentric LVH. Left ventricular ejection fraction is estimated at _60- 65%. Right Ventricle Normal right ventricular size. Right Atrium Normal right atrial size. Left Atrium Normal left atrial size. Mitral Valve Structurally normal mitral valve. Trace MR. Aortic Valve Trileaflet aortic valve. No aortic valve stenosis or regurgitation. Tricuspid Valve Structurally normal tricuspid valve. Mild TR. RVSP= 32mmhg Pulmonic Valve Pulmonic valve not well visualized. No pulmonic regurgitation. Pericardium Normal pericardium. Aorta Normal size aortic root and proximal ascending aorta. CONCLUSIONS Normal LV systolic function Previewed by: Dr. Elias Reagan MD (Electronically Signed) Final Date: 24 Jan 2023 10:41
--- NOTE | 2023-01-24 13:06 | HP ---
HISTORY AND PHYSICAL HISTORY OF PRESENT ILLNESS: This 57-year-old white male came to hospital with tinnitus after being outside working, possibly had some toxin exposures at home doing housework outside. He had chest tightness and pressure from possible toxin exposure, dizziness, and vertigo. He is being ruled out for mini-stroke. He fell, he was intoxicated, could not move. Last thing he did he was under the car when he could not get up and he was dizzy and tinnitus. HOME MEDICINES: Zyrtec 10 daily. REVIEW OF SYSTEMS: A 14-point review of systems otherwise negative. PAST MEDICAL HISTORY: Coronary artery disease, angina, eye disorder, GERD, hypertension, sleep apnea, pre- diabetics, hypertension acceleration. PAST SURGICAL HISTORY: Appendectomy, cholecystectomy, heart catheterization and hernia repair, orthopedic surgery, and elevated liver enzymes. FAMILY HISTORY: Reviewed. PHYSICAL EXAMINATION: VITAL SIGNS: Blood pressure 120s to 130s over 70s to 80s. CARDIOVASCULAR: S1, S2. LUNGS: Decreased breath sounds x4, wheezes on the right side of the lungs upper and lower, moderate amount. PSYCH: Fair mood and affect. NEUROLOGIC: Cranial nerves intact. HEENT: Pupils equal, round, and reactive to light. ABDOMEN: Soft. HEMATOLOGY: Negative for Homans. ASSESSMENT: Acute hypoxemic respiratory distress, suspect toxin exposure. ENT, ear canals look red, especially left greater than right, suspect he has otitis media, external ear canal infection on the left. Acute otitis externa on the left, COPD exacerbation, tinnitus, near syncope secondary to possible toxin exposure. Rule out mini-stroke with the MRI. Chest pain secondary to shortness of breath and wheezing. CAT scan of his chest, we will wait for MRI of the brain to rule out any TIA. Prognosis guarded. MMODL / IJN: [id number] /
[2023-01-24] MEDS: SODIUM CHLORIDE 0.9% 1,000 ML IV SCH (13:19)
--- NOTE | 2023-01-24 16:19 | CT ---
EXAMINATION TYPE: CT chest w con DATE OF EXAM: 01/24/2023 COMPARISON: Chest x-ray from 2 days earlier HISTORY: chest pain CT DLP: 346.7 mGycm. Automated Exposure Control for Dose Reduction was Utilized. TECHNIQUE: CT scan of the thorax is performed following with IV Contrast, patient injected with 100 mL of Isovue 300. FINDINGS: LUNGS: Mild posterior basilar linear scarring and/or atelectasis. Mild linear scarring in the right middle lobe and inferior lingula. No suspicious focal consolidation. No concerning masses. There is no pleural effusion or pneumothorax seen. The tracheobronchial tree is patent. MEDIASTINUM: There are no greater than 1 cm hilar or mediastinal lymph nodes. No cardiomegaly or pe ricardial effusion is seen. Ascending aorta measures up to 3.6 cm in diameter. No linear hypodensity to suggest aortic dissection. There is mild coronary artery calcification present. OTHER: No additional significant abnormality is seen. IMPRESSION: Mild scattered lower lung linear scarring and/or atelectasis. No suspicious acute pulmona ry process.
--- NOTE | 2023-01-24 16:57 | MR ---
EXAMINATION TYPE: MR brain wo con DATE OF EXAM: 01/24/2023 4:48 PM COMPARISON: CT brain 01/22/2023, CTA head neck 01/22/2023.. CLINICAL INDICATION:Male, 57 years old with history of Vertigo; PHH, TECHNIQUE: Multi planar, multi sequence imaging was performed through the brain. No gadolinium was gi niraj. FINDINGS: The rossi-white junctions, ventricular system, and cisterns appear unremarkable. No T2/FLAIR hyperinte nsities identified within the white matter. Midline structures show no abnormality. Diffusion-weighte d imaging shows no evidence of restricted diffusion. The susceptibility weighted images do not reveal any evidence for micro-hemorrhage. The bone marrow signal is within normal limits. The paranasal sinuses and globes are unremarkable. IMPRESSION: No evidence of intracranial mass or acute/subacute infarct.
[2023-01-24] MEDS ORDERED: CYANOCOBALAMIN 1,000 MCG/ML 1 ML VIAL IM ONE (17:25)
[2023-01-24] MEDS: FOLIC ACID 1 MG TAB PO SCH (18:13)
--- NOTE | 2023-01-24 18:44 | P.PN ---
Subjective Progress Note Date: 01/24/23 Patient was seen for a follow-up. Patient states that the dizziness comes and goes. In the morning he got up slowly and walk to the bathroom, brush his teeth was just slightly lightheaded. Later on he wanted to take shower and the symptoms were worse. The symptoms are slightly more worse now. When he is rolling over in the bed, sitting up too fast makes him dizzy. He was only able to complete his MRI laying down, just because he had received Ativan. Telemetry monitoring showing sinus rhythm in the 50s. Objective - Vital Signs Vital signs: Vital Signs Temp 97.9 F 01/24/23 14:10 Pulse 91 01/24/23 14:10 Resp 16 01/24/23 14:10 BP 120/73 01/24/23 14:10 Pulse Ox 95 01/24/23 14:10 FiO2 Intake & Output 01/23/23 01/24/23 01/24/23 18:59 06:59 18:59 Intake Total 318 457 Output Total 300 950 Balance 18 -950 457 Intake: Oral 318 457 Output: Urine 300 950 Other: Voiding Method Urinal Urinal Urinal # Voids 2 - Exam Patient's mental status, speech and language functions are normal. Muscle strength is normal. No ataxia. Sensory normal. Cranial nerves normal. - Labs CBC & Chem 7: 01/23/23 05:39 01/23/23 05:39 Assessment and Plan Assessment: * Acute onset of vertigo, with worsening symptoms with changing his head or body position. Examination is otherwise nonfocal. Symptoms suggestive of possible peripheral vestibular dysfunction, probable BPPV. CVA ruled out. * 1 years history of intermittent dizziness, lightheadedness, some tinnitus, also suggestive of peripheral vestibular dysfunction. Rule out BPPV versus vestibular neuritis. * Hypertension * Previous history of alcohol use * borderline B12 and folate levels. Plan: * MRI brain revealed no evidence of acute intracranial mass or acute/subacute infarct. I personally reviewed MRI, I agree with the findings. * B12 309, folate 8.40, TSH slightly low 0.269, with free T4 normal 1.00, A1c 5.8, lipid panel pending * Patient will be given vitamin B12 1000 g IM 1 dose, and then 500 g orally daily. Folic acid 1 mg daily for borderline folic acid. * CTA of head and neck was limited study because of limited amount of contrast within the vascular structures, but otherwise appears patent. The vertebral arteries are patent. There is right dominant vertebral artery. No evidence of intracranial high-grade stenosis or intracranial aneurysm. * Recommend ENT consultation. May be done as an outpatient. * Patient probably will benefit from vestibular rehabilitation. * Neurologically clear.
--- NOTE | 2023-01-24 20:30 | PN ---
PROGRESS NOTE SUBJECTIVE: A 57-year-old gentleman, who was admitted to hospital with vertigo, was supposed to have an echo done yesterday, which they did not. He is doing much better today. He continues to have vertigo, but it has improved significantly. The plan at this stage is to obtain an echocardiogram and if that is benign, consider an outpatient stress test. OBJECTIVE: GENERAL: Comfortable at rest. VITAL SIGNS: Stable. NECK: There is no jugular venous distention. Carotid upstroke is normal. There is no bruit. CHEST: Reveals good air entry bilaterally. HEART: Reveals first and second heart sounds. No gallop. No murmur. ABDOMEN: Soft. EXTREMITIES: Did not reveal any edema. Peripheral pulses are felt. ASSESSMENT: 1. Atypical chest pain. 2. Vertigo. PLAN: I will follow the echo results and await resolution of the vertigo. MMDIANL / CATHIEN: [id number] /
[2023-01-24] MEDS ORDERED: MONTELUKAST 10 MG TAB PO SCH (21:00)
[2023-01-24] MEDS ORDERED: SYMBICORT 160-4.5 MCG INHALER INHALATION SCH (22:22)
[2023-01-24] MEDS ORDERED: IPRATROPIUM-ALBUTEROL 3 ML NEB INHALATION SCH (22:23)
[2023-01-25] MEDS: methylPREDNISolone SOD SUCCI 40 MG/ML 1 ML VIAL IV SCH ×3 (00:19→16:12)
--- NOTE | 2023-01-25 02:03 | PN ---
PROGRESS NOTE SUBJECTIVE: A 57-year-old white male remains on Fioricet for headache, DuoNeb for COPD, Symbicort for asthma, Solu-Medrol for COPD exacerbation, Singulair 10 mg daily once a day for his asthma and allergies. He appears to be improved. His vertigo that came in with is mostly improved today for 50%. He did have an episode when he stood up and moved around the room. We are going to recheck him for orthostatic hypotension. He remains on Ciprodex for otitis externa. He has an MRI of the brain scheduled this afternoon as well as CT of the chest. Echo was normal. OBJECTIVE: VITAL SIGNS: Blood pressure 120/73, O2 95% on room air, temp 97.9, pulse 91, respiratory rate 16 to 18. CARDIOVASCULAR: S1, S2. LUNGS: Mild wheeze at the right lower and right upper lobe, improved air flows . HEMATOLOGY: Negative Homans. PSYCH: Giving appropriate answers. NEUROLOGIC: Cranial nerves are intact. He is up ambulating a little. ASSESSMENT: 1. Rule out a cerebrovascular accident. MRI is done today. 2. Chronic obstructive pulmonary disease. 3. Asthma exacerbation. Continue current medications. Please see further orders. Expect discharge over the next 24 to 48 hours as he appears to be improving. MMODL / IJN: [id number] /
[2023-01-25] MEDS: SODIUM CHLORIDE 0.9% 1,000 ML IV SCH ×2 (04:21→16:01)
[2023-01-25 07:54] VITALS: RESP 18
[2023-01-25] MEDS: FOLIC ACID 1 MG TAB PO SCH (08:19)
[2023-01-25] MEDS: CIPROFLOXACIN-DEXAMETH 0.3-0.1% DROPS 7.5 ML BTL BOTH EARS SCH (08:20)
[2023-01-25] MEDS: SYMBICORT 160-4.5 MCG INHALER INHALATION SCH (08:53)
[2023-01-25] MEDS: IPRATROPIUM-ALBUTEROL 3 ML NEB INHALATION SCH ×3 (08:54→16:14)
--- NOTE | 2023-01-25 08:58 | PN ---
PROGRESS NOTE SUBJECTIVE: Jacob is a 57-year-old gentleman, who is admitted to hospital with vertigo, had an echocardiogram yesterday that shows normal LV systolic function without significant valvular heart disease. He is free of chest pain. From cardiac standpoint, he is doing well. His vertigo is getting better, but has not resolved fully. OBJECTIVE: GENERAL: He is comfortable at rest. VITAL SIGNS: Stable. CHEST: Reveals good air entry bilaterally. HEART: Reveals first and second heart sounds. No gallop. EXTREMITIES: Did not reveal any edema. Peripheral pulses are felt. LABORATORY DATA: His TSH level is low at 0.2, but the free T4 is normal at 1. These needs to be addressed as outpatient. ASSESSMENT AND PLAN: 1. Vertigo. 2. Atypical chest pain. From cardiac standpoint, the patient is doing well, has not had any further episodes of chest discomfort. I am going to see him on an as-needed basis, and I will arrange an outpatient stress test on him when his vertigo symptoms resolve. Management of vertigo and rest of the patient's issues including the TSH are as per Primary. MMODL / IJN: [id number] /
[2023-01-25] MEDS ORDERED: CYANOCOBALAMIN 500 MCG TAB PO SCH (09:00)
[2023-01-25 15:15] VITALS: BP 124/74; TEMP 97.9
[2023-01-25 16:23] VITALS: PULSE 72
== END 2023-01-25 18:42 | disposition home or self-care (01) ==
LOC: EC 16:59 → 6NMEDSUR 20:33
PROVIDERS: ADMIT Family Medicine; ATTEND Family Medicine
DX: R07.89 Other chest pain (principal); I25.10 Atherosclerotic heart disease of native coronary artery without angina pectoris; I10 Essential (primary) hypertension; R74.8 Abnormal levels of other serum enzymes; R73.03 Prediabetes; K21.9 Gastro-esophageal reflux disease without esophagitis; H40.9 Unspecified glaucoma; I65.23 Occlusion and stenosis of bilateral carotid arteries; Z86.16 Personal history of COVID-19; Z90.49 Acquired absence of other specified parts of digestive tract; Z82.49 Family history of ischemic heart disease and other diseases of the circulatory system; Z88.8 Allergy status to other drugs, medicaments and biological substances; Z79.899 Other long term (current) drug therapy; Z63.4 Disappearance and death of family member; Z83.3 Family history of diabetes mellitus; Z85.9 Personal history of malignant neoplasm, unspecified
CPT/HCPCS: 96376; 96361 ×3; 96372; 96375 ×3; 96374; 99285; 36415; 94640 ×4; 93005; 93306; 85379; 84439; 83880; 80053; 80048 ×2; 84443; 82607; 82746; 83690; 83735; 84484 ×2; 85025 ×2; 85610; 85730; 83036; 71046; 70496; 70450; 71260; 70498; 70551; G0378 ×4; J2060; J3420; J1100; J2920; J2930 ×2; J3360; J1885; Q9967 ×2

== ENCOUNTER 2023-12-15 21:42 | Emergency (ER) | payer SELFPAY ==
[2023-12-15] MEDS: DEXAMETHASONE SOD PHOSPHATE 4 MG/ML 1 ML VIAL IVP STA (22:54)
[2023-12-15] MEDS: SODIUM CHLORIDE 0.9% 1,000 ML IV STA (22:55)
[2023-12-15] MEDS: MORPHINE SULFATE 4 MG/ML SYRINGE IVP STA (22:55)
[2023-12-15 23:06] LABS: Basophils % (A) 1 %; Eosinophils # (A) 0.2 k/uL (0-0.7); Eosinophils % (A) 4 %; HCT 44.7 % (39.0-53.0); HGB 15.1 gm/dL (13.0-17.5); Lymphocytes # (A) 2.6 k/uL (1.0-4.8); Lymphocytes % (A) 37 %; MCH 29.7 pg (25.0-35.0); MCHC 33.7 g/dL (31.0-37.0); Mean Platelet Volume 7.8; Monocytes # (A) 0.4 k/uL (0-1.0); Monocytes % (A) 6 %; Neutrophils # (A) 3.6 k/uL (1.3-7.7); Neutrophils % (A) 51 %; Platelet Count 169 k/uL (150-450); RBC 5.08 m/uL (4.30-5.90); WBC 6.9 k/uL (3.8-10.6)
[2023-12-15 23:15] LABS: ALT 22 U/L (4-49); AST 26 U/L (17-59); African American GFR (CKD) >90 (>60 ml/min/1.73 sqM); Albumin 4.2 g/dL (3.5-5.0); Alkaline Phosphatase 44 U/L (38-126); Anion Gap 7 mmol/L; Blood Urea Nitrogen 14 mg/dL (9-20); Calcium 9.2 mg/dL (8.4-10.2); Carbon Dioxide 22 mmol/L (22-30); Chloride 108 mmol/L (98-107); Glucose 92 mg/dL (74-99); Non-African American GFR(CKD) >90 (>60 ml/min/1.73 sqM); Potassium 4.5 mmol/L (3.5-5.1); Sodium 137 mmol/L (137-145); Total Bilirubin 0.8 mg/dL (0.2-1.3); Total Protein 6.9 g/dL (6.3-8.2)
--- NOTE | 2023-12-16 00:23 | ED ---
General Adult HPI - General Chief complaint: ENT Stated complaint: Left Side Facial Pain Time Seen by Provider: 12/15/23 22:36 Source: patient, RN notes reviewed, old records reviewed Mode of arrival: ambulatory Limitations: no limitations - History of Present Illness Initial comments: Patient is a 58-year-old male who presents emergency department complaining of 2 to 3 weeks of left-sided facial pain. It is intermittent. Seems to radiate from his jaw down into his teeth. Is not consistent. No known provocative or palliative factors. Has already seen a dentist and it was unremarkable. Denies any fevers, chills, cough, rhinorrhea. Denies any abdominal pain, nausea, vomiting, chest pain. Presents for further evaluation at this time. States he occasionally feels lightheaded from the discomfort. Symptoms have not changed over the last 2 to 3 weeks, but because has no current answers he presents for further evaluation. States pain seems to radiate near his jaw and it is shooting pain down towards his teeth. Denies injuries. Has no other acute complaints.States he occasionally feels like the back left side of his tongue is now more swollen. Symptoms are constant for the last 2 to 3 weeks. - Related Data Home Medications Medication Instructions Recorded Confirmed Cetirizine HCl [Zyrtec] 10 mg PO DAILY 01/07/21 01/22/23 Previous Rx's Medication Instructions Recorded Azithromycin [Zithromax] 250 mg PO DAILY 4 Days #4 tab 12/16/23 predniSONE [Deltasone] 20 mg PO DAILY 5 Days #5 tab 12/16/23 Allergies Allergy/AdvReac Type Severity Reaction Status Date / Time ondansetron HCl AdvReac UPSETS HIS Verified 12/15/23 22:00 [From Zofran (as STOMACH hydrochloride)] Review of Systems ROS Statement: Those systems with pertinent positive or pertinent negative responses have been documented in the HPI. Review of Systems: CONST: Denies fever EYES: Denies blurry vision ENT: Endorses jaw pain C/V: Denies Chest pain RESP: Denies shortness of breath GI: Denies abdominal pain : Denies dysuria SKIN: Denies rash. MSK: Denies joint pain. NEURO: Denies headache ROS Other: All systems not noted in ROS Statement are negative. Past Medical History Past Medical History: Coronary Artery Disease (CAD), Chest Pain / Angina, Eye Disorder, GERD/Reflux, Hypertension, Sleep Apnea/CPAP/BIPAP Additional Past Medical History / Comment(s): Start of left eye Glaucoma. Hx chest pain X2, no medication needed for high BP, "Pre-Diabetic", elevated liver enzymes, getting better, no CPAP use. Hx CoVid more than 30 days ago. History of Any Multi-Drug Resistant Organisms: None Reported Past Surgical History: Appendectomy, Cholecystectomy, Heart Catheterization, Hernia Repair, Orthopedic Surgery Additional Past Surgical History / Comment(s): Left knee surgery. Past Anesthesia/Blood Transfusion Reactions: No Reported Reaction Past Psychological History: No Psychological Hx Reported Smoking Status: Never smoker Past Alcohol Use History: Rare Past Drug Use History: None Reported - Past Family History Father Family Medical History: Coronary Artery Disease (CAD), Myocardial Infarction ([place]) Additional Family Medical History / Comment(s): Father at age 62 or 63. He had 13 [place]'s before he . Mother Family Medical History: Cancer, Diabetes Mellitus Additional Family Medical History / Comment(s): Mother was 61-62 yrs when she . General Exam - General Exam Comments Initial Comments: General: Appears in no acute distress. HEAD: Normal with no signs of head trauma. EYES: PERRLA, EOMI, conjunctiva normal, no discharge. Pupils are 3 mm and equal bilaterally. ENT: Hearing grossly intact, normal oropharynx. No significant maxillary sinus tenderness to palpation. Bilateral tympanic membranes within normal limits. No obvious lymph node enlargement on palpation. No obvious intraoral lesion or edema. Uvula midline. Tongue is normal. No stridor on auscultation. RESPIRATORY: Clear breath sounds bilaterally. No wheezes, rales, or rhonchi. C/V: Regular rate and rhythm. S1 and S2 auscultated, no edema, peripheral pulses 2+ and intact throughout ABD: Abd is soft, nontender, nondistended EXT: Normal range of motion, no obvious deformity SKIN: No rashes or lesions observed on exposed skin. NEURO: Alert and oriented x 4. Cranial nerves II-XII intact. No focal sensory or strength deficits. NIH is 0. Limitations: no limitations Course Vital Signs 12/15/23 12/16/23 21:57 00:16 Temperature 97.5 F L Pulse Rate 68 64 Respiratory 18 18 Rate Blood Pressure 150/101 117/78 O2 Sat by Pulse 98 94 L Oximetry Medical Decision Making - Medical Decision Making Was pt. sent in by a medical professional or institution (, [facility], [employer], urgent care, hospital, or fdc...) When possible be specific @ -No Did you speak to anyone other than the patient for history (EMS, parent, family, police, friend...)? What history was obtained from this source @ -No Did you review nursing and triage notes (agree or disagree)? Why? @ -I reviewed and agree with nursing and triage notes Were old charts reviewed (outside hosp., previous admission, EMS record, old EKG, old radiological studies, urgent care reports/EKG's, fdc records)? Report findings @ -Old charts reviewed Differential Diagnosis (chest pain, altered mental status, abdominal pain women, abdominal pain men, vaginal bleeding, weakness, fever, dyspnea, syncope, headach e, dizziness, GI bleed, back pain, seizure, CVA, palpatations, mental health, musculoskeletal)? @ -Facial pain, infection such as parodititis, trigeminal neuralgia, intracranial injury. This list is not all inclusive. EKG interpreted by me (3pts min.). @ -As above X-rays interpreted by me (1pt min.). @ -None done CT interpreted by me (1pt min.). @ -CT of the brain, CT soft tissue neck negative for any obvious acute abnormality other than prominent left cervical and submandibular lymph nodes. U/S interpreted by me (1pt. min.). @ -None done What testing was considered but not performed or refused? (CT, X-rays, U/S, labs)? Why? @ -None What meds were considered but not given or refused? Why? @ -None Did you discuss the management of the patient with other professionals (professionals i.e. [facility]ANDA Dooley, [employer], lab, RT, psych nurse, social work professor, databases software consultant, teacher, aoc plans intelligence officer chief, shelter case manager)? Give summary @ -No Was smoking cessation discussed for >3mins.? @ -No Was critical care preformed (if so, how long)? @ -No Were there social determinants of health that impacted care today? How? (Homelessness, low income, unemployed, alcoholism, drug addiction, transportation, low edu. Level, literacy, decrease access to med. care, fdc, rehab)? @ -No Was there de-escalation of care discussed even if they declined (Discuss DNR or withdrawal of care, Hospice)? DNR status @ -No What co-morbidities impacted this encounter? (DM, HTN, Smoking, COPD, CAD, Cancer, CVA, ARF, Chemo, Hep., AIDS, mental health diagnosis, sleep apnea, morbid obesity)? @ -None Was patient admitted / discharged? Hospital course, mention meds given and route, prescriptions, significant lab abnormalities, going to OR and other pertinent info. @ -Patient presents with nonspecific left facial pain. Neuroexam normal. Symptoms have been ongoing for multiple weeks. Broad differential, but does include trigeminal neuralgia, intracranial process, infection. Will obtain CT imaging as well as basic labs and screening EKG. Patient in agreement this plan. He will receive a IV analgesia medications as well as steroids and 1 L fluid bolus. He was in agreement this plan. Vital signs are within acceptable limits. EKG shows no signs of acute ischemia. Laboratory studies all unremarkable including negative viral swabs and negative strep swab. CT imaging negative for any obvious acute process other than enlarged left sided submandibular and cervical lymph nodes. I discussed results with the patient. He is feeling improved at this time. I did recommend follow-up with his PCP and in the interim I will place the patient on empiric antibiotics as well as steroids. He was in agreement this plan. St rict return precautions discussed. Discussed the possibility of this being trigeminal neuralgia as there is no other obvious finding at this time recommended follow-up with neurology which patient was in agreement with. I will provide the patient with a prescription for azithromycin, prednisone. I instructed the patient to follow up with their PCP in the next 1-3 days.. I explained that the patient should return to the emergency department if they experience any worsening symptoms. Strict return precautions were discussed with the patient. The patient expressed understanding of these instructions. I answered all questions that the patient had. The patient was discharged home in good condition with their prescriptions and follow up information. Undiagnosed new problem with uncertain prognosis? @ -No Drug Therapy requiring intensive monitoring for toxicity (Heparin, Nitro, Insulin, Cardizem)? @ -No Were any procedures done? @ -No Diagnosis/symptom? @ -Facial pain, lymph node enlargement Acute, or Chronic, or Acute on Chronic? @ -Acute Uncomplicated (without systemic symptoms) or Complicated (systemic symptoms)? @ -Uncomplicated Side effects of treatment? @ -No Exacerbation, Progression, or Severe Exacerbation? @ -No Poses a threat to life or bodily function? How? (Chest pain, [place], [place], pneumonia, PE, COPD, DKA, ARF, appy, cholecystitis, CVA, Diverticulitis, Homicidal, S uicidal, threat to staff... and all critical care pts) @ -Unlikely - Lab Data Result diagrams: 12/15/23 22:53 12/15/23 22:53 Lab Results 12/15/23 12/15/23 12/15/23 Range/Units 22:53 22:53 23:07 WBC 6.9 (3.8-10.6) k/uL RBC 5.08 (4.30-5.90) m/uL Hgb 15.1 (13.0-17.5) gm/dL Hct 44.7 (39.0-53.0) % MCV 88.0 (80.0-100.0) fL MCH 29.7 (25.0-35.0) pg MCHC 33.7 (31.0-37.0) g/dL RDW 13.0 (11.5-15.5) % Plt Count 169 (150-450) k/uL MPV 7.8 Neutrophils % 51 % Lymphocytes % 37 % Monocytes % 6 % Eosinophils % 4 % Basophils % 1 % Neutrophils # 3.6 (1.3-7.7) k/uL Lymphocytes # 2.6 (1.0-4.8) k/uL Monocytes # 0.4 (0-1.0) k/uL Eosinophils # 0.2 (0-0.7) k/uL Basophils # 0.0 (0-0.2) k/uL Sodium 137 (137-145) mmol/L Potassium 4.5 (3.5-5.1) mmol/L Chloride 108 H (98-107) mmol/L Carbon Dioxide 22 (22-30) mmol/L Anion Gap 7 mmol/L BUN 14 (9-20) mg/dL Creatinine 0.71 (0.66-1.25) mg/dL Est GFR (CKD-EPI)AfAm >90 (>60 ml/min/1.73 sqM) Est GFR (CKD-EPI)NonAf >90 (>60 ml/min/1.73 sqM) Glucose 92 (74-99) mg/dL Calcium 9.2 (8.4-10.2) mg/dL Total Bilirubin 0.8 (0.2-1.3) mg/dL AST 26 (17-59) U/L ALT 22 (4-49) U/L Alkaline Phosphatase 44 (38-126) U/L Total Protein 6.9 (6.3-8.2) g/dL Albumin 4.2 (3.5-5.0) g/dL Influenza Type A (PCR) (Not Detectd) Influenza Type B (PCR) (Not Detectd) RSV (PCR) (Not Detectd) SARS-CoV-2 (PCR) (Not Detectd) Group A Strep (PCR) NOT DETECTED (Not Detectd) 12/15/23 Range/Units 23:07 WBC (3.8-10.6) k/uL RBC (4.30-5.90) m/uL Hgb (13.0-17.5) gm/dL Hct (39.0-53.0) % MCV (80.0-100.0) fL MCH (25.0-35.0) pg MCHC (31.0-37.0) g/dL RDW (11.5-15.5) % Plt Count (150-450) k/uL MPV Neutrophils % % Lymphocytes % % Monocytes % % Eosinophils % % Basophils % % Neutrophils # (1.3-7.7) k/uL Lymphocytes # (1.0-4.8) k/uL Monocytes # (0-1.0) k/uL Eosinophils # (0-0.7) k/uL Basophils # (0-0.2) k/uL Sodium (137-145) mmol/L Potassium (3.5-5.1) mmol/L Chloride (98-107) mmol/L Carbon Dioxide (22-30) mmol/L Anion Gap mmol/L BUN (9-20) mg/dL Creatinine (0.66-1.25) mg/dL Est GFR (CKD-EPI)AfAm (>60 ml/min/1.73 sqM) Est GFR (CKD-EPI)NonAf (>60 ml/min/1.73 sqM) Glucose (74-99) mg/dL Calcium (8.4-10.2) mg/dL Total Bilirubin (0.2-1.3) mg/dL AST (17-59) U/L ALT (4-49) U/L Alkaline Phosphatase (38-126) U/L Total Protein (6.3-8.2) g/dL Albumin (3.5-5.0) g/dL Influenza Type A (PCR) Not Detected (Not Detectd) Influenza Type B (PCR) Not Detected (Not Detectd) RSV (PCR) Not Detected (Not Detectd) SARS-CoV-2 (PCR) Not Detected (Not Detectd) Group A Strep (PCR) (Not Detectd) - EKG Data -: EKG Interpreted by Me EKG Comments: 12-lead Electrocardiogram Interpretation Note EKG was reviewed and interpreted by myself. 12-lead ECG performed at 2244 is interpreted by me as revealing normal sinus rhythm at a rate of 59 beats per minute. Irving is normal. OK interval is 185 ms, QRS duration is 88 ms, QTc is 397 ms.. There were no ST or T wave abnormalities to suggest myocardial ischemia or injury. R wave progression across the precordium was satisfactory. By my interpretation this EKG is non-diagnostic for acute ischemia. Disposition Clinical Impression: Facial pain, Lymph node enlargement Disposition: HOME SELF-CARE Condition: Good Additional Instructions: possible eval with neurology for trigeminal neuralgia. follow up with Dr. Edwards on sunday. Prescriptions: predniSONE [Deltasone] 20 mg PO DAILY 5 Days #5 tab Azithromycin [Zithromax] 250 mg PO DAILY 4 Days #4 tab Is patient prescribed a controlled substance at d/c from ED?: No Referrals: Gregorio Edwards MD [Primary Care Provider] - 1-2 days Time of Disposition: 01:14
--- NOTE | 2023-12-16 00:25 | CT ---
EXAM: CT Neck With Intravenous Contrast CLINICAL HISTORY: ITS.REASON CT Reason: left facial pain/swelling TECHNIQUE: Axial computed tomography images of the neck with intravenous contrast. CTDI is 6.9 mGy and DLP is 242.9 mGy-cm. This CT exam was performed using one or more of the following dose reduction techniques: automated exposure control, adjustment of the mA and/or kV according to patient size, and/or use of iterative reconstruction technique. COMPARISON: None FINDINGS: Oropharynx: Unremarkable. No significant tonsillar enlargement. No peritonsillar abscess. Hypopharynx: Unremarkable. Larynx: Unremarkable. Normal epiglottis. Trachea: Unremarkable. Retropharyngeal space: Unremarkable. Submandibular/parotid glands: Unremarkable. Glands are normal in size. Thyroid: Unremarkable. No enlarged or calcified nodules. Bones/joints: Mild reversal of the normal cervical lordosis. Degenerative changes of the spine. No acute fracture. Soft tissues: Unremarkable. Vasculature: No acute findings. Lymph nodes: Nonspecific mildly prominent left cervical and submandibular and submental lymph nodes. Lung apices: Unremarkable as visualized. IMPRESSION: Nonspecific mildly prominent left cervical and submandibular and submental lymph nodes.
--- NOTE | 2023-12-16 00:46 | CT ---
EXAM: CT Head Without Intravenous Contrast CLINICAL HISTORY: ITS.REASON CT Reason: left facial pain/swelling TECHNIQUE: Axial computed tomography images of the head/brain without intravenous contrast. CTDI is 45.2 mGy and DLP is 1125 mGy-cm. This CT exam was performed using one or more of the following dose reduction techniques: automated exposure control, adjustment of the mA and/or kV according to patient size, and/or use of iterative reconstruction technique. COMPARISON: MRI brain on 01/24/2023 FINDINGS: Brain: No acute infarct or hemorrhage. No extra-axial fluid collection. No mass effect or midline shift. Ventricles and sulci: Normal. No ventriculomegaly or intraventricular hemorrhage. Bones: Normal. No bony lesion or acute fracture. Subcutaneous tissues: Normal. Sinuses: Normal. No air-fluid levels or mucosal thickening. Mastoid air cells: Normal. Orbits: Grossly unremarkable. IMPRESSION: No acute intracranial abnormality.
[2023-12-16] MEDS: ACET/COD 300 MG/30 MG STARTER PACK 6 TAB BTL PO STA (01:31)
[2023-12-16] MEDS: AZITHROMYCIN 500 MG TAB PO STA (01:31)
[2023-12-16 02:13] VITALS: BP 112/72; PULSE 77; RESP 16; TEMP 98
== END 2023-12-16 01:42 | disposition home or self-care (01) ==
LOC: EC 21:42
DX: R51.9 Headache, unspecified (principal); R59.9 Enlarged lymph nodes, unspecified; Z88.8 Allergy status to other drugs, medicaments and biological substances
CPT/HCPCS: 36415; 87651; 80053; 85025; 87636; 70491; 70450; 99284; 96374; 96375; 96361; J2270; J1100; Q9967

== ENCOUNTER → 2024-11-21 | Outpatient (CLI) | payer BC ==
[2024-11-21 15:26] LABS: ALT 18 U/L (10-49); AST 21 U/L (14-35); Albumin 4.4 g/dL (3.8-4.9); Albumin/Globulin Ratio 1.69 Ratio (1.60-3.17); Alkaline Phosphatase 47 U/L (41-126); BUN/Creat Ratio 12.89 Ratio (12.00-20.00); Blood Urea Nitrogen 11.6 mg/dL (9.0-27.0); Calcium 9.6 mg/dL (8.7-10.3); Carbon Dioxide 27.8 mmol/L (21.6-31.8); Chloride 104 mmol/L (96-109); Globulin 2.6 g/dL (1.6-3.3); Glucose 94 mg/dL (70-110); Iron 97 UG/DL (65-175); Lipase 15 U/L (14-60); Potassium 4.6 mmol/L (3.5-5.5); Sodium 140 mmol/L (135-145); Total Bilirubin 0.8 mg/dL (0.3-1.2)
[2024-11-21 16:46] LABS: HCT 47.8 % (39.6-50.0); HGB 15.8 g/dL (13.0-17.0); MCH 29.4 pg (27.0-32.0); MCHC 33.1 g/dL (32.0-37.0); MCV 88.8 FL (80.0-97.0); Mean Platelet Volume 10.6 FL (9.5-12.2); NRBC Per 100 WBC 0 X 10*3/uL (0.00-0.01); Platelet Count 177 X 10*3/uL (140-440); RBC 5.38 X 10*6/uL (4.40-5.60); RDW 13.2 % (11.5-14.5); WBC 5.43 X 10*3/uL (4.50-10.00)
== END | disposition home or self-care (01) ==
LOC: LABWHC1 10:33
PROVIDERS: ATTEND Family Medicine
DX: K92.1 Melena (principal)
CPT/HCPCS: 36415; 80053; 83540; 83690; 85027

== ENCOUNTER 2024-12-09 11:13 | Day surgery (SDC) | payer BC ==
[2024-12-05 12:15] VITALS: BMI 28.7
[~2024-12-09 11:13] MED LIST changes: -CHLOROPROCAINE 3% 30 MG/ML 20 ML VIAL ONE; -DEXAMETHASONE SOD PHOSPHATE 4 MG/ML 1 ML VIAL IV ONE; -HYDROmorphone 0.5 MG/0.5 ML SYRINGE IVP PRN; -LACTATED RINGERS 1,000 ML IV SCH; +LIDOCAINE 1% (10MG/ML) FOR IV START INTRADERMA PRN; -Pre Op ABX Message 1 EACH MISC MISCELLANE ONE
[2024-12-09 11:51] VITALS: TEMP 97.5
[2024-12-09] MEDS: LACTATED RINGERS 1,000 ML IV SCH (11:55)
[2024-12-09] MEDS: IV FLUID CONTINUATION 1,000 ML IV ONE (11:55)
[2024-12-09] MEDS ORDERED: PROPOFOL 10 MG/ML 20 ML VIAL IV ONE (12:08)
[2024-12-09] MEDS ORDERED: LIDOCAINE 2% (PF) 20 MG/ML 5 ML VIAL ONE (12:08)
--- NOTE | 2024-12-09 12:49 | P.PCN ---
Date of Procedure: 12/09/24 Preoperative Diagnosis: GI bleed Postoperative Diagnosis: Gastritis Diverticulosis Procedure(s) Performed: EGD with biopsy Colonoscopy Anesthesia: MAC Surgeon: Esequiel Hamilton Pathology: other (Biopsies of antrum, duodenum, GE junction) Condition: stable Disposition: same day Indications for Procedure: 59-year-old male with concern for both bright red blood per rectum and dark stool. He was started on PPI and Carafate and has improvement in the dark- colored stool. Plan is for upper and lower endoscopy for further evaluation. Risks, benefits and alternatives were provided to the patient. All questions answered. Operative Findings: Gastritis Diverticula Description of Procedure: The patient was brought into the endoscopy suite and placed in left lateral decubitus position. Adequate sedation was achieved using conscious sedation. A bite-block was placed and an endoscope was placed in the oropharynx and advanced under endoscopic visualization. The endoscope was advanced through the esophagus into the stomach, through the gastric antrum and in through the pylorus. The third portion of duodenum was visualized. The endoscope was then slowly withdrawn. The first portion of duodenum was noted to have mild inflammatory changes. Biopsies were taken. The antrum was noted to have mild inflammatory change. Biopsies were taken. The gastric body distended normally and the gastric folds appeared normal and flattened with insufflation. No obvious ulcers noted throughout the exam. A retroflexed view of the fundus and GE junction revealed no significant abnormality and no obvious hiatal hernia. GE junction appeared normal and biopsies were taken. The esophagus appeared endoscopically normal. Excess air was removed and the scope was withdrawn. Digital rectal exam was performed and mild internal hemorrhoids were palpated. An endoscope was then placed in the rectum and advanced to the cecum as identified by landmarks including the appendiceal orifice and the ileocecal valve. The prep was good. The colonoscope was then slowly withdrawn, examining for any mucosal abnormalities. The cecum, ascending, transverse, descending and sigmoid colon were visualized adequately. There were no large neoplastic lesions noted throughout the colon. No obvious polyps noted throughout the colon. Moderate amount of diverticulosis was noted in the descending and sigmoid colon. Hemostasis was maintained. Retroflexion was performed in the rectum and internal hemorrhoids. Excess air was removed, the colonoscope withdrawn and the procedure terminated. The patient was then transferred to the recovery unit in stable condition. Repeat colonoscopy should be performed in 10 years.
[2024-12-09 12:52] VITALS: RESP 18
[2024-12-09 13:05] VITALS: BP 123/70; PULSE 70
== END 2024-12-09 13:18 | disposition home or self-care (01) ==
LOC: ORWHC2ENDO 11:13
PROVIDERS: ATTEND Surgery
DX: K64.8 Other hemorrhoids (principal); K57.30 Diverticulosis of large intestine without perforation or abscess without bleeding; K29.50 Unspecified chronic gastritis without bleeding; K21.00 Gastro-esophageal reflux disease with esophagitis, without bleeding; I10 Essential (primary) hypertension; I25.10 Atherosclerotic heart disease of native coronary artery without angina pectoris; G47.33 Obstructive sleep apnea (adult) (pediatric); Z79.899 Other long term (current) drug therapy; Z88.8 Allergy status to other drugs, medicaments and biological substances
CPT/HCPCS: 45378; 43239; J2704; J2003; 88305

== ENCOUNTER 2025-02-22 09:12 | Emergency (ER) | payer BC ==
[2025-02-22 09:22] VITALS: RESP 18; TEMP 97.9
--- NOTE | 2025-02-22 09:51 | ED ---
General Adult HPI - General Chief complaint: Recheck/Abnormal Lab/Rx Stated complaint: Dizziness/Light Headed Time Seen by Provider: 02/22/25 09:35 Source: patient Mode of arrival: ambulatory Limitations: no limitations - History of Present Illness Initial comments: Dictation was produced using [employer] dictation software. please excuse any grammatical, word or spelling errors. Chief Complaint: 59-year-old male with chief complaint of syncopal episode History of Present Illness: Patient 59-year-old male he was working underneath his vehicle. States that he was laying on the ground fixing parts of his brakes. States that during that as soon as he laid down after several seconds he felt like he nodded off. States that when he lays flat significantly dizzy. Complains of a mild posterior headache. Patient states that the headache is slight. Denies any pain complaints. Patient denies any comorbidities. The ROS documented in this emergency department record has been reviewed and confirmed by me. Those systems with pertinent positive or negative responses have been documented in the HPI. All other systems are other negative and/or no ncontributory. - Related Data Home Medications Medication Instructions Recorded Confirmed Pantoprazole Sodium 40 mg PO QAM 12/05/24 12/05/24 Sucralfate [Carafate] 1 gm PO QID 12/05/24 12/05/24 Previous Rx's Medication Instructions Recorded Meclizine [Antivert] 25 mg PO TID PRN #15 tab 02/22/25 Allergies Allergy/AdvReac Type Severity Reaction Status Date / Time ondansetron HCl AdvReac UPSETS HIS Verified 02/22/25 09:22 [From Zofran (as STOMACH hydrochloride)] Review of Systems ROS Statement: Those systems with pertinent positive or pertinent negative responses have been documented in the HPI. ROS Other: All systems not noted in ROS Statement are negative. Past Medical History Past Medical History: Coronary Artery Disease (CAD), Chest Pain / Angina, Eye Disorder, GERD/Reflux, Hypertension, Sleep Apnea/CPAP/BIPAP Additional Past Medical History / Comment(s): Recent black stool, diarrhea and light-headedness. Start of L eye Glaucoma. Hx chest pain X2, "Pre-Diabetic", elevated liver enzymes, getting better, no CPAP use. Past hx of CoVid-19. History of Any Multi-Drug Resistant Organisms: None Reported Past Surgical History: Appendectomy, Cholecystectomy, Heart Catheterization, Hernia Repair, Orthopedic Surgery Additional Past Surgical History / Comment(s): L knee surgery, multiple hernia repairs Past Anesthesia/Blood Transfusion Reactions: No Reported Reaction Additional Past Anesthesia/Blood Transfusion Reaction / Comment(s): No hx of blood transfusion Past Psychological History: No Psychological Hx Reported Smoking Status: Never smoker Past Alcohol Use History: None Reported Past Drug Use History: None Reported - Past Family History Father Family Medical History: Coronary Artery Disease (CAD), Myocardial Infarction ([place]) Additional Family Medical History / Comment(s): Father at age 62 or 63. He had 13 TX's before he . Mother Family Medical History: Cancer, Diabetes Mellitus Additional Family Medical History / Comment(s): Mother was 61-62 yrs when she . Brother(s) Family Medical History: Coronary Artery Disease (CAD), Myocardial Infarction ([place]) General Exam - General Exam Comments Initial Comments: PHYSICAL EXAM: General Impression: Alert and oriented x3, not in acute distress HEENT: Normocephalic atraumatic, extra-ocular movements intact, pupils equal and reactive to light bilaterally, mucous membranes moist. Cardiovascular: Heart regular rate and rhythm Chest: Able to complete full sentences, no retractions, no tachypnea Abdomen: abdomen soft, non-tender, non-distended, no organomegaly Musculoskeletal: Pulses present and equal in all extremities, no peripheral edema Motor: no focal deficits noted Neurological: CN II-XII grossly intact, no focal motor or sensory deficits noted, patient well-appearing however when laying supine states that it is unbearable due to vertigo Skin: Intact with no visualized rashes Psych: Normal affect and mood Limitations: no limitations Course Vital Signs 02/22/25 02/22/25 09:18 12:13 Temperature 97.9 F Pulse Rate 69 82 Respiratory 18 18 Rate Blood Pressure 140/88 132/80 O2 Sat by Pulse 95 98 Oximetry Medical Decision Making - Medical Decision Making Was pt. sent in by a medical professional or institution (, PA, JAVASCRIPT UI DEVELOPER, urgent care, hospital, or group home...) When possible be specific @ -No Did you speak to anyone other than the patient for history (EMS, parent, family, police, friend...)? What history was obtained from this source @ -No Did you review nursing and triage notes (agree or disagree)? Why? @ -I reviewed and agree with nursing and triage notes Were old charts reviewed (outside hosp., previous admission, EMS record, old EKG, old radiological studies, urgent care reports/EKG's, group home records)? Report findings @ -No old charts were reviewed Differential Diagnosis (chest pain, altered mental status, abdominal pain women, abdominal pain men, vaginal bleeding, musculoskeletal, weakness, fever, dyspnea, syncope, headache, dizziness, GI bleed, back pain, seizure, CVA, palpatations, mental health)? @ -Differential Dizziness: Benign paroxysmal positional Vertigo, Meniere's disease, otitis media, acoustic neuroma, vertebrobasilar insufficiency, cerebellar stroke, encephalitis, hypovolemic, arrhythmia, coronary artery syndrome, anemia, this is not meant to be an all-inclusive list EKG interpreted by me (3pts min.). @ -My EKG interpretation: Ventricular rate 63, sinus rhythm, KY interval 185, QRS 86, QTc 408. No [place] prolongation, no QTC prolongation, no ST or T-wave ch anges noted. Overall, this EKG is unremarkable X-rays interpreted by me (1pt min.). @ -None done CT interpreted by me (1pt min.). @ -CT brain shows no acute processes U/S interpreted by me (1pt. min.). @ -None done What testing was considered but not performed or refused? (CT, X-rays, U/S, lab s)? Why? @ -None What meds were considered but not given or refused? Why? @ -None Was smoking cessation discussed for >3mins.? @ -No Were there social determinants of health that impacted care today? How? (Homelessness, low income, unemployed, alcoholism, drug addiction, transportation, low edu. Level, literacy, decrease access to med. care, senior care, rehab)? @ -No Was there de-escalation of care discussed even if they declined (Discuss DNR or withdrawal of care, Hospice)? DNR status @ -No What co-morbidities impacted this encounter? (DM, HTN, Smoking, COPD, CAD, Cancer, CVA, ARF, Chemo, Hep., AIDS, mental health diagnosis, sleep apnea, morbid obesity)? @ -None Was patient admitted / discharged? Hospital course, mention meds given and route, prescriptions, significant lab abnormalities, going to OR and other pertinent info. @ -59-year-old male with no significant neurologic comorbidities presents to the emergency department for vertigo. Patient has no high risk features states that his symptoms are triggered with head movement. He has no other focal neurologic findings. Does not have any history of stroke. Patient feels well at rest. CT is unremarkable. Labs negative. Patient given symptomatic treatment with improvement of symptoms. Patient discharged advised follow-up with primary care doctor. Patient counseled on when to worry about your vertiginous symptoms. He is understandable agreeable. at the bedside is agreeable with plan as well. Did you discuss the management of the patient with other professionals (professionals i.e. , PA, JAVASCRIPT UI DEVELOPER, lab, RT, psych nurse, delinquency prevention social worker, veneer glue spreader, teacher, founder and chief technical officer, therapeutic case manager)? Give summary @ -No Was critical care preformed (if so, how long)? @ -No Undiagnosed new problem with uncertain prognosis? @ -No Drug Therapy requiring intensive monitoring for toxicity (Heparin, Nitro, Insulin, Cardizem)? @ -No Were any procedures done? @ -No Diagnosis/symptom? Acute, or Chronic, or Acute on Chronic? Uncomplicated (without systemic symptoms) or Complicated (systemic symptoms)? @ -Vertigo, no high risk features Side effects of treatment? @ -No Exacerbation, Progression, or Severe Exacerbation? @ -No Poses a threat to life or bodily function? How? (Chest pain, [place], [place], pneumonia, PE, COPD, DKA, ARF, appy, cholecystitis, CVA, Diverticulitis, Homicidal, Suicidal, threat to staff... and all critical care pts) @ -yes - Lab Data Result diagrams: 02/22/25 10:17 02/22/25 10:17 Lab Results 02/22/25 02/22/25 Range/Units 10:17 10:17 WBC 5.93 (4.50-10.00) 10*3/uL RBC 4.98 (4.40-5.60) 10*6/uL Hgb 14.8 (13.0-17.0) g/dL Hct 42.3 (39.6-50.0) % MCV 84.9 (80.0-97.0) fL MCH 29.7 (27.0-32.0) pg MCHC 35.0 (32.0-37.0) g/dL Plt Count 169 (140-440) 10*3/uL MPV 10.1 (9.5-12.2) fL Immature Gran % (Auto) 0.2 % Neutrophils % 53.4 % Lymphocytes % 33.9 % Monocytes % 8.3 % Eosinophils % 3.9 % Basophils % 0.3 % Immature Gran # 0.01 (0.00-0.04) 10*3/uL Neutrophils # 3.17 (1.80-7.70) 10*3/uL Lymphocytes # 2.01 (0.90-5.00) 10*3/uL Monocytes # 0.49 (0.20-1.00) 10*3/uL Eosinophils # 0.23 (0.04-0.35) 10*3/uL Basophils # 0.02 (0.00-0.10) 10*3/uL Sodium 138 (137-145) mmol/L Potassium 4.0 (3.5-5.1) mmol/L Chloride 105 (98-107) mmol/L Carbon Dioxide 25 (22-30) mmol/L Anion Gap 8 mmol/L BUN 12 (9-20) mg/dL Creatinine 0.88 (0.66-1.25) mg/dL Est GFR (CKD-EPI)AfAm >90 (>60 ml/min/1.73 sqM) Est GFR (CKD-EPI)NonAf >90 (>60 ml/min/1.73 sqM) Glucose 104 H (74-99) mg/dL Calcium 9.1 (8.4-10.2) mg/dL Total Bilirubin 0.8 (0.2-1.3) mg/dL AST 22 (17-59) U/L ALT 17 (4-49) U/L Alkaline Phosphatase 44 (38-126) U/L Total Protein 6.3 (6.3-8.2) g/dL Albumin 3.9 (3.5-5.0) g/dL Disposition Clinical Impression: BPPV (benign paroxysmal positional vertigo) Disposition: HOME SELF-CARE Condition: Fair Prescriptions: Meclizine [Antivert] 25 mg PO TID PRN #15 tab PRN Reason: dizziness Is patient prescribed a controlled substance at d/c from ED?: No Referrals: Gregorio Edwards MD [Primary Care Provider] - 1-2 days Time of Disposition: 12:18
[2025-02-22] MEDS: SODIUM CHLORIDE 0.9% 1,000 ML IV STA (10:30)
[2025-02-22] MEDS: METOCLOPRAMIDE 5 MG/ML 2 ML VIAL IVP STA (10:31)
[2025-02-22] MEDS: MECLIZINE 12.5 MG TAB PO STA (10:32)
[2025-02-22 10:37] LABS: ALT 17 U/L (4-49); AST 22 U/L (17-59); African American GFR (CKD) >90 (>60 ml/min/1.73 sqM); Albumin 3.9 g/dL (3.5-5.0); Alkaline Phosphatase 44 U/L (38-126); Anion Gap 8 mmol/L; Blood Urea Nitrogen 12 mg/dL (9-20); Calcium 9.1 mg/dL (8.4-10.2); Carbon Dioxide 25 mmol/L (22-30); Chloride 105 mmol/L (98-107); Glucose 104 mg/dL (74-99); Non-African American GFR(CKD) >90 (>60 ml/min/1.73 sqM); Sodium 138 mmol/L (137-145); Total Bilirubin 0.8 mg/dL (0.2-1.3); Total Protein 6.3 g/dL (6.3-8.2)
[2025-02-22 10:44] LABS: Basophils # (A) 0.02 10*3/uL (0.00-0.10); Basophils % (A) 0.3 %; Eosinophils # (A) 0.23 10*3/uL (0.04-0.35); Eosinophils % (A) 3.9 %; HCT 42.3 % (39.6-50.0); HGB 14.8 g/dL (13.0-17.0); Lymphocytes # (A) 2.01 10*3/uL (0.90-5.00); Lymphocytes % (A) 33.9 %; MCH 29.7 pg (27.0-32.0); MCV 84.9 fL (80.0-97.0); Mean Platelet Volume 10.1 fL (9.5-12.2); Monocytes # (A) 0.49 10*3/uL (0.20-1.00); Monocytes % (A) 8.3 %; Neutrophils # (A) 3.17 10*3/uL (1.80-7.70); Neutrophils % (A) 53.4 %; Platelet Count 169 10*3/uL (140-440); RBC 4.98 10*6/uL (4.40-5.60); RDW 12.8 % (11.5-14.5); WBC 5.93 10*3/uL (4.50-10.00)
--- NOTE | 2025-02-22 11:28 | CT ---
EXAMINATION TYPE: CT brain wo con DATE OF EXAM: 02/22/2025 11:08 AM COMPARISON: 12/15/2023.. CLINICAL INDICATION: Male, 59 years old with history of headache, HEADACHE TECHNIQUE: Brain: Axial CT images of the brain were obtained with coronal and sagittal reformats created and rev iewed. Contrast used: None. Oral contrast used: None. CT DLP: 1304.1 mGycm, Automated exposure control for dose reduction was used. FINDINGS: Brain: Extra-axial spaces: No abnormal extra-axial fluid collections. Ventricular system: Within normal limits Cerebral parenchyma: No acute intraparenchymal hemorrhage or mass effect. The rossi-white junction is well differentiated. Cerebellum: Unremarkable. Mass effect: No evidence of midline shift. Intracranial vasculature: Atherosclerotic calcifications of the intracranial vessels. Soft tissues: Normal. Calvarium/osseous structures: No depressed skull fracture. Paranasal sinuses and mastoid air cells: Mild scattered paranasal sinus disease. Visualized orbits: Orbital contents are intact. IMPRESSION: No acute intracranial process. [facility], , 02/22/2025 11:26 AM
[2025-02-22 12:14] VITALS: BP 132/80; PULSE 82
== END 2025-02-22 12:43 | disposition home or self-care (01) ==
LOC: EC 09:12
DX: H81.10 Benign paroxysmal vertigo, unspecified ear (principal); Z88.8 Allergy status to other drugs, medicaments and biological substances
CPT/HCPCS: 36415; 93005; 80053; 85025; 70450; 99284; 96374; 96361; J2765; 96375; 96376